=== PATIENT | female | born 1950 | race Caucasian/White ===

== ENCOUNTER 2016-07-17 15:30 | Inpatient (IN) ==
[2016-07-17] MEDS ORDERED: ZOFRAN IV ONE (16:08)
[2016-07-17] MEDS ORDERED: NS 1,000 ML IV ONE (16:10)
--- NOTE | 2016-07-17 16:11 | PROVIDER DOCUMENTATION ---
HPI-Abdominal Pain/GI Problem - General Source: patient, family - History of Present Illness-ABD Associated Symptoms: reports: cough, nausea, vomiting # of Vomiting Episodes: 25 (approx) <Renata Holman - Last Filed: 07/17/16 17:55> <Lizabeth Godfrey - Last Filed: 07/17/16 18:44> - General Chief Complaint: Nausea/Vomiting Stated Complaint: NAUSEA AND VOMITING Time Seen by Provider: 07/17/16 16:00 Allergies/Adverse Reactions: Patient Allergies Allergy/AdvReac Type Severity Reaction Status Date / Time No Known Allergies Allergy Verified 07/17/16 15:51 Home Medications: Aspirin EC 81 mg PO DAILY 04/30/16 Diltiazem HCl [Diltiazem 24Hr ER] 120 mg PO DAILY 04/30/16 Divalproex [Depakote] 500 mg PO DAILY 04/30/16 Docusate Sodium [Colace] 100 mg PO DAILY 04/30/16 Propranolol HCl [Propranolol HCl ER] 80 mg PO DAILY 04/30/16 Alendronate Sodium 70 mg PO Q7D 05/01/16 Allopurinol 100 mg PO DAILY 05/01/16 Amlodipine Besylate 10 mg PO DAILY 05/01/16 Clonidine [Catapres] 0.1 mg PO BID 05/01/16 Cyanocobalamin 1,000 microgm IM DIRECTED 05/01/16 Furosemide 40 mg PO DAILY 05/01/16 Hydrocodone Bit/Acetaminophen [Hydrocodon-Acetaminophn 10-325] 1 each PO BID PRN PRN 05/01/16 Levothyroxine [Synthroid] 125 microgm PO DAILY 05/01/16 Lisinopril 40 mg PO DAILY 05/01/16 Meloxicam 15 mg PO DAILY 05/01/16 Potassium Chloride E.r. [Klor-Con] 20 meq PO DAILY 05/01/16 - History of Present Illness-ABD Nature of Presenting Problems: Pt presents to the ER with complaints of nausea and vomiting x 24 hours. Pt was in recently hospitalized for kidney infection. Family has since pulled pt out of custodial. She denies abdominal pain. FSBS was 71 at home. (Renata Holman) Review of Systems - Adult - REVIEW OF SYSTEMS - ADULT Constitutional: denies: chills, fever Eyes: reports: no symptoms reported Ears, Nose, Mouth & Throat: reports: no symptoms reported Cardiovascular: reports: no symptoms reported Respiratory: reports: no symptoms reported Gastrointestinal: reports: nausea, vomiting. denies: abdominal pain Genitourinary: reports: no symptoms reported Musculoskeletal: reports: no symptoms reported Integumentary: reports: no symptoms reported Neurological: reports: no symptoms reported Psychiatric: reports: no symptoms reported Endocrine: reports: no symptoms reported Hematologic/Lymphatic: reports: no symptoms reported Allergic/Immunologic: reports: no symptoms reported All Other Systems: Reviewed and Negative <Renata Holman Filed: 07/17/16 17:55> Past History - Adult - PAST MEDICAL HISTORY-ADULT Review of Records: reports: Nursing Assessment Review, Medications Reviewed Cardiovascular: reports: cardiac disease Respiratory: denies: pneumonia Gastrointestinal: reports: GERD Musculoskeletal: reports: chronic pain Neurological: reports: Parkinson's - IMMUNIZATION STATUS Childhood Immunizations: See Nurse Assessment Flu Vaccine: See Nurse Assessment <Manda,Renata Filed: 07/17/16 17:55> Physical Exam-General - PHYSICAL EXAM-ADULT Initial Vital Signs Reviewed: Yes - CONSTITUTIONAL General Appearance: alert, no apparent distress - EYES Eyes: PERRL/EOMI, pink conjunctivae - HEAD, EARS, NOSE, MOUTH & THROAT HENMT: normocephalic/atraumatic, normal ENT inspection - NECK Neck: supple, normal inspection - RESPIRATORY Respiratory: no respiratory distress, no accessory muscle use - CARDIOVASCULAR Cardiovascular: normal peripheral pulses, regular rate, rhythm - MUSCULOSKELETAL Back Exam: no CVA tenderness, no vertebral tenderness Extremity: normal gait, normal inspection - SKIN Integumentary: normal color, warm/dry - NEUROLOGIC Neurologic: grossly normal, no motor/sensory deficits - PSYCHIATRIC Psych/Mental Status: normal mood/affect, normal thought content, normal thought process, oriented x 3 <MandaJaime cruzsey Filed: 07/17/16 17:55> Progress - XRAY 1 XRAY Study: Chest Impression: Abnormal (ileus, per radiologist) - CHANGE OF SHIFT REPORT (ED Provider) Report Given and Care Transferred to:: Dr. Tipton Time of Transfer: 17:55 Items Pending: Labs <Jaime Holmansey Filed: 07/17/16 17:55> - CONSULTS/PCP/HOSPITALIST Notification #1 *Consult/PCP/Hospitalist*: Dr. Rothman Time Discussed: 18:37 Consult Disposition: Admit <Lizabeth Godfrey - Last Filed: 07/17/16 18:44> - PLAN OF CARE/RESULTS Progress/Plan/Lab Results: plan of care: imaging, labs, fluids, medications Orders Category Date Time Status Castro Cath Insertion ORDERED Care 07/17/16 17:18 Active ABDOMEN FLAT/UPRIGHT [RAD] Stat Exams 07/17/16 16:08 Completed CBC WITH ELECTRONIC DIFF [HEME] Stat Lab 07/17/16 17:25 Completed COMPREHENSIVE METABOLIC PANEL [CHEM] Stat Lab 07/17/16 17:25 Completed LIPASE [CHEM] Stat Lab 07/17/16 17:[address] W/POSS RFLX CULT [URINALYSIS] Stat Lab 07/17/16 17:11 Completed URINE CULTURE [RM] Routine Lab 07/17/16 17:49 Ordered 0.9% Sodium Chloride Inj [Ns] 1,000 ml Med 07/17/16 16:10 Discontinued IV 999 mls/hr Ondansetron [Zofran] Med 07/17/16 16:08 Discontinued 4 mg IV NOW ONE Laboratory Tests 07/17/16 07/17/16 07/17/16 17:11 17:25 17:25 WBC RBC Hgb Hct MCV MCH MCHC RDW Std Deviation Plt Count MPV Immature Gran % (Auto) Neut % (Auto) Lymph % (Auto) [place] % (Auto) Eos % (Auto) Baso % (Auto) Immature Gran # (Auto) Neut # Lymph # [place] # Eos # Baso # Sodium 127 L Potassium 2.8 L Chloride 91 L Carbon Dioxide 24 L Anion Gap 12 BUN 8 Creatinine 0.9 Estimated GFR/1.73 m2 > 60 BUN/Creatinine Ratio 9 Glucose 87 Calculated Osmolality 253 Calcium 8.5 L Total Bilirubin 0.20 AST 17 ALT 7 L Alkaline Phosphatase 112 H Total Protein 5.0 L Albumin 1.9 L Globulin 3.0 Albumin/Globulin Ratio 1.0 Lipase 6 L Urine Source CATH Urine Color YELLOW Urine Clarity VERY CLOUDY A Urine pH 6.5 Ur Specific [place] 1.010 Urine Protein NEGATIVE Urine Ketones NEGATIVE Urine Blood 1+ A Urine Nitrite NEGATIVE Urine Bilirubin NEGATIVE Urine Urobilinogen NORMAL Urine Microscopic RBC <10 Urine WBC 2+ A Urine Microscopic WBC 10-20 A Ur Epithelial Cells >10 A Urine Crystals NONE SEEN Urine Bacteria 1+ Urine Casts NONE SEEN Urine Yeast PRESENT Urine Glucose NEGATIVE 07/17/16 17:25 WBC 9.05 RBC 3.08 L Hgb 9.4 L Hct 27.3 L MCV 88.6 MCH 30.5 MCHC 34.4 RDW Std Deviation 16.0 H Plt Count 688 H MPV 9.0 Immature Gran % (Auto) 0.2 Neut % (Auto) 76.8 H Lymph % (Auto) 11.8 L [place] % (Auto) 10.6 H Eos % (Auto) 0.3 Baso % (Auto) 0.3 Immature Gran # (Auto) 0.02 Neut # 6.94 H Lymph # 1.07 L [place] # 0.96 H Eos # 0.03 Baso # 0.03 Sodium Potassium Chloride Carbon Dioxide Anion Gap BUN Creatinine Estimated GFR/1.73 m2 BUN/Creatinine Ratio Glucose Calculated Osmolality Calcium Total Bilirubin AST ALT Alkaline Phosphatase Total Protein Albumin Globulin Albumin/Globulin Ratio Lipase Urine Source Urine Color Urine Clarity Urine pH Ur Specific [place] Urine Protein Urine Ketones Urine Blood Urine Nitrite Urine Bilirubin Urine Urobilinogen Urine Microscopic RBC Urine WBC Urine Microscopic WBC Ur Epithelial Cells Urine Crystals Urine Bacteria Urine Casts Urine Yeast Urine Glucose Vital Signs - 24 hr 07/17/16 07/17/16 07/17/16 15:48 16:00 16:42 Pulse Rate 125 H Respiratory 21 14 Rate Blood Pressure 117/75 106/70 129/71 O2 Sat by Pulse Oximetry 07/17/16 07/17/16 07/17/16 16:45 17:01 17:15 Pulse Rate Respiratory 15 Rate Blood Pressure 98/86 88/73 106/76 O2 Sat by Pulse Oximetry 07/17/16 07/17/16 07/17/16 17:39 17:51 18:00 Pulse Rate 116 H 112 H Respiratory 11 L 13 Rate Blood Pressure 118/62 110/76 101/71 O2 Sat by Pulse 97 Oximetry 07/17/16 18:10 Pulse Rate 108 H Respiratory 13 Rate Blood Pressure 105/82 O2 Sat by Pulse Oximetry Pt/Family given results. Pt will be admitted to the Hospitalist [facility]. PT/ Family in agreement with plan of care. (Lizabeth Godfrey) Departure <Renata Holman - Last Filed: 07/17/16 17:55> - Departure Time of Disposition Order: 18:42 Certified Medical Emergency: Emergent <Lizabeth Godfrey - Last Filed: 07/17/16 18:44> - Departure DIAGNOSIS: Hypokalemia, Hyponatremia, Decubitus ulcer of back, stage 1 Disposition: ADMITTED INPATIENT 09 Condition: Stable Attestation - Scribe Verification/Attestation Scribe:: Renata Holman Acting as Scribe for:: Prince Cuevas Scribe documention review:: This chart was documented by a scribe and accurately reflects the service the provider performed and the decisions made by the provider. <Renata Holman - Last Filed: 07/17/16 17:55> - Scribe Verification/Attestation #2 Shift Change Time: 18:00 Scribe Name: Lizabeth Godfrey Acting as Scribe for:: Jean Marie Tipton <Lizabeth Godfrey - Last Filed: 07/17/16 18:44> Physician Attestation - Physician Attestation I, the provider, attest to the following statement:: Jean Marie Tipton Physician documentation Attestation:: This documentation recorded by the scribe accurately reflects the service I personally performed and the decisions made by me. <Lizabeth Godfrey - Last Filed: 07/17/16 18:44>
[2016-07-17 17:19] LABS: URINE SOURCE CATH
--- NOTE | 2016-07-17 17:20 | Diag Imaging Result Document ---
PROCEDURE NAME: ABDOMEN FLAT/UPRIGHT - 07/17/2016 FLAT AND UPRIGHT ABDOMEN: FINDINGS: There is some gas throughout the small bowel and colon including the rectum. The stomach is not distended. There is no evidence of organomegaly or mass. IMPRESSION: Ileus.
[2016-07-17 17:26] LABS: BILIRUBIN URINE NEGATIVE (NEGATIVE); BLOOD URINE 1+ (NEGATIVE); CLARITY VERY CLOUDY (CLEAR); COLOR YELLOW; GLUCOSE URINE NEGATIVE (NEGATIVE); LEUKOCYTES URINE 2+ (NEGATIVE); NITRITE URINE NEGATIVE (NEGATIVE); PH URINE 6.5; PROTEIN URINE NEGATIVE (NEGATIVE); UROBILINOGEN URINE NORMAL
[2016-07-17 17:40] LABS: MANUAL DIFF NEEDED? NO
[2016-07-17 17:42] LABS: BASO% 0.3 % (0.0-0.8); EOS# 0.03 X1000 (0.0-0.7); EOS% 0.3 % (0.0-10.0); HEMATOCRIT 27.3 % (37.0-47.0); HEMOGLOBIN 9.4 g/dL (12.0-16.0); IMM GRAN# 0.02 X1000 (0.0-0.04); IMM GRAN% 0.2 % (0.0-0.5); LYMPH# 1.07 X1000 (1.2-3.4); LYMPH% 11.8 % (20.5-51.1); MCH 30.5 PG (27-31); MCHC 34.4 g/dL (33-37); MCV 88.6 FL (81-99); MONO# 0.96 X1000 (0.11-0.59); MONO% 10.6 % (1.7-9.3); NEUT% 76.8 % (42.2-75.2); PLT 688 X1000 (130-400); RBC 3.08 XMIL (4.2-5.4)
[2016-07-17 17:48] LABS: URINE CAST NONE SEEN /LPF; URINE CRYSTAL NONE SEEN /HPF; URINE EPITHELIAL CELLS >10 /HPF (<10); URINE RBC <10 /HPF (<10)
[2016-07-17 17:49] LABS: URINE CULTURE PL NEEDED? YES
[2016-07-17 18:20] LABS: AGAP 12; ALBUMIN 1.9 g/dL (3.5-5.0); ALKALINE PHOSPHATASE 112 U/L (32-104); BUN 8 mg/dL (8-22); CALCIUM 8.5 mg/dL (8.8-10.2); CHLORIDE 91 mmol/L (98-107); COSMO 253; GOT 17 U/L (10-30); GPT 7 U/L (10-36); POTASSIUM 2.8 mmol/L (3.5-5.1); SODIUM 127 mmol/L (136-145); TCO2 24 mmol/L (25-35)
[2016-07-17] MEDS: NS 1,000 ML IV SCH (21:10)
[2016-07-17] MEDS: ZOFRAN IV PRN (21:11)
[2016-07-17] MEDS: CATAPRES PO SCH (21:11)
[2016-07-17] MEDS: KLOR-CON PO SCH (21:11)
[2016-07-17] MEDS ORDERED: CALMOSEPTINE OINTMENT TOP PRN (22:01)
[2016-07-18] MEDS ORDERED: PHENERGAN IV ONE ×2 (00:28→05:01)
[2016-07-18] MEDS ORDERED: SODIUM CHLORIDE 0.9% INJ ONE ×2 (00:28→05:01)
[2016-07-18] MEDS ORDERED: SODIUM CHLORIDE 0.9% 10 ML ONE (04:54)
[2016-07-18] MEDS ORDERED: PHENERGAN ONE (04:54)
[2016-07-18] MEDS: NS 1,000 ML IV SCH ×5 (05:00→21:54)
[2016-07-18] MEDS: SYNTHROID PO SCH ×4 (05:03→06:41)
[2016-07-18] MEDS ORDERED: FOSAMAX PO SCH (06:00)
[2016-07-18] MEDS: KLOR-CON PO SCH ×2 (08:53→21:54)
[2016-07-18] MEDS: COLACE PO SCH (08:53)
[2016-07-18] MEDS: CATAPRES PO SCH ×2 (08:53→21:54)
[2016-07-18] MEDS: DEPAKOTE PO SCH (08:53)
[2016-07-18] MEDS: CARDIZEM CD PO SCH (08:53)
[2016-07-18] MEDS: ZYLOPRIM PO SCH (08:53)
[2016-07-18 09:50] LABS: AGAP 7; BUN 7 mg/dL (8-22); CALCIUM 8.4 mg/dL (8.8-10.2); CHLORIDE 97 mmol/L (98-107); COSMO 259; POTASSIUM 2.7 mmol/L (3.5-5.1); SODIUM 131 mmol/L (136-145); TCO2 27 mmol/L (25-35)
[2016-07-18] MEDS: TYLENOL PO PRN (12:22)
--- NOTE | 2016-07-18 15:03 | HISTORY AND PHYSICAL ---
CHIEF COMPLAINT: Nausea and vomiting. HISTORY OF PRESENT ILLNESS: This is a 66-year-old female with a history of cerebrovascular accident with left-sided weakness, Parkinson disorder, diabetes type 2 and hypothyroidism. She presented to the emergency room complaining of nausea and vomiting x24 hours. She denies any diarrhea or constipation, as well as any fever or chills. She was found to have an ileus on abdominal x-ray with some gas throughout the small bowel and colon including the rectum. She is also found be hypokalemic with a potassium of 2.8. In the emergency room she was given a liter bolus of fluids with Phenergan IV, and then admitted for further evaluation and treatment. PAST MEDICAL HISTORY: 1. Parkinson. 2. Diabetes type 2. 3. CVA with left-sided weakness. The patient is bed bound. 4. Diabetic peripheral neuropathy. 5. Gastroesophageal reflux disease. 6. Hypothyroidism. 7. Chronic pain. 8. Chronic obstructive pulmonary disease with no treatment. PAST SURGICAL HISTORY: Hiatal hernia repair, cholecystectomy and bilateral cataract surgery. SOCIAL HISTORY: She denies alcohol, tobacco, or illicit drug use. She is bed bound. She is unable to care for herself. She has be assisted with feeding. ALLERGIES: No known drug allergies. HOME MEDICATIONS: A list will be obtained. REVIEW OF SYSTEMS: A 14 point review of systems are discussed with patient with pertinent positives stated in HPI. She denies chest pain, palpitations, dizziness, syncope, black or bloody vomitus, black or bloody stools, hematuria, dysuria, frequency or urgency. PHYSICAL EXAMINATION: GENERAL: This is a 66-year-old, female, who is sitting up in the bed in no distress. VITAL SIGNS: Blood pressure is 117/75, heart rate of 102, respirations are 18, temperature is 99 degrees with an oxygen saturation of 99% to 100% on room air. HEENT: Head is normocephalic, atraumatic. Pupils equal, round, react to light. EOMs are intact. Sclerae anicteric. Mucous membranes are dry. NECK: Supple with trachea midline. CARDIOVASCULAR: Regular rate and rhythm. S1 and S2 appreciated. PULMONARY: Breath sounds are clear. No increased work of breathing noted. BACK: No CVAT. No spine tenderness. MUSCULOSKELETAL: Good range of motion to joints. SKIN: Warm and dry. No rashes or lesions noted. EXTREMITIES: No clubbing, cyanosis, or edema. Calves nontender. Pulses are palpable x4. DIAGNOSTICS: Labs: WBC is 9.05 with hemoglobin 9.4, hematocrit 27.3, and platelets of 688. Sodium is 127, potassium 2.8, BUN 8, creatinine 0.9, with a glucose of 87. Urinalysis is a cath urine with 1+ blood, 15-20 microscopic white blood cells, less than 10 microscopic red blood cells, 1+ bacteria. Lipase is 6. X-rays: Abdominal x-ray revealed an ileus. ASSESSMENT AND PLAN: 1. Nausea and vomiting. 2. Ileus. 3. Hypokalemia. 4. Hyponatremia, secondary to #1. 5. Diabetes type 2 with neuropathy. 6. Parkinson. 7. Gastroesophageal reflux disease. 8. Hypothyroidism. 9. History of cerebrovascular accident with left-sided weakness. The patient is bed bound. PLAN: The patient has been admitted to the hospital. We will continue with IV hydration. We will supplement potassium and trend labs. As she has an ileus, we will hold off on Phenergan. Will give Zofran for nausea. At present, we will identify the home medications and continue as appropriate. We will check a hemoglobin A1c, as well as a TSH. For DVT prophylaxis, we will use SCDs, and for GI prophylaxis we will use Prilosec. Further treatments pending hospital course. Dictated by JASPREET Dean for Herrera Rothman MD
[2016-07-18] MEDS: POTASSIUM CHLORIDE 20 MEQ/SWI 100 ML IV SCH ×2 (15:26→17:48)
[2016-07-19] MEDS: NS 1,000 ML IV SCH ×4 (02:51→23:42)
[2016-07-19] MEDS: SYNTHROID PO SCH ×4 (05:28→06:21)
[2016-07-19] MEDS: PRILOSEC PO SCH ×2 (05:29→06:21)
[2016-07-19 09:24] LABS: HEMOGLOBIN 8.6 g/dL (12.0-16.0); MCH 29.1 PG (27-31); MCHC 33.1 g/dL (33-37); MCV 87.8 FL (81-99); MPV 8.8 FL (7.4-10.4); RBC 2.96 XMIL (4.2-5.4)
[2016-07-19 09:33] LABS: AGAP 9; BUN 6 mg/dL (8-22); CHLORIDE 99 mmol/L (98-107); COSMO 259; SODIUM 130 mmol/L (136-145); TCO2 22 mmol/L (25-35)
[2016-07-19 09:48] LABS: HEMOGLOBIN A1C 4.3 % (4.8-6.0)
[2016-07-19] MEDS: COLACE PO SCH ×2 (10:57→12:38)
[2016-07-19] MEDS: ZYLOPRIM PO SCH ×2 (10:57→12:39)
[2016-07-19] MEDS: CATAPRES PO SCH ×4 (10:57→21:36)
[2016-07-19] MEDS: CARDIZEM CD PO SCH ×2 (10:57→12:38)
[2016-07-19] MEDS: KLOR-CON PO SCH ×3 (10:57→21:39)
[2016-07-19] MEDS: DEPAKOTE PO SCH ×2 (10:58→12:39)
[2016-07-19] MEDS: ZOFRAN IV PRN ×2 (12:22→17:37)
--- NOTE | 2016-07-19 16:00 | PROGRESS NOTE ---
DATE: 07/19/2016 SUBJECTIVE: Patient resting quietly in bed. No complaints voiced. OBJECTIVE: Vital Signs: Temperature 98, pulse 93, respirations 18, blood pressure 127/69, saturating 100% on room air. General: This is a 66-year-old, female who is lying in the bed, answers questions appropriately. HEENT: Normocephalic and atraumatic. Pupils are equal, round, reactive to light. Extraocular movements are intact. Oropharynx and nares are clear. Neck: Supple. Lungs: Were clear to auscultation bilaterally with equal lung expansion and chest wall movement. Heart: With regular rate and rhythm. No murmurs, rubs, or gallops. Abdomen: Soft, nontender, nondistended. Bowel sounds are present x4 quadrants. Extremities: No clubbing, cyanosis, or edema. Neurological: Cranial nerves 2-12 are grossly intact. LABORATORY DATA: Showed a white blood cell count of 10.60, hemoglobin 8.6, hematocrit 26.0, platelets 645. Sodium of 130, potassium 3.0, chloride 99, CO2 of 22, BUN of 6, creatinine 0.7, glucose 104, hemoglobin A1c was 4.3. ASSESSMENT AND PLAN: 1. Nausea and vomiting. Will continue clear liquids at this time. 2. Zofran 4 mg IV q.4 hours p.r.n. 3. Ileus. We will recheck a flat and upright of the abdomen in the a.m. 4. Hypokalemia. We will supplement and recheck a BMP and a magnesium level in the a.m. 5. Hyponatremia. Stable currently, but still mildly low. Continue her normal saline at 125 mL an hour. 6. Dysphagia. She was evaluated by speech therapy today, who felt that she demonstrated possible esophageal dysphagia as she had immediate vomiting with applesauce. Recommended a liquid diet at this time and a gastroenterology consult for a possible esophageal stricture. So we will transfer the patient over to [facility] for GI consultation once a bed availability is there, and we will continue to follow. Dictated by JASPREET Jennings for Peewee Montana MD
[2016-07-20 06:09] LABS: MANUAL DIFF NEEDED? NO
[2016-07-20] MEDS: PRILOSEC PO SCH (06:20)
[2016-07-20] MEDS: SYNTHROID PO SCH ×2 (06:20)
[2016-07-20 06:22] LABS: BASO% 0.2 % (0.0-0.8); EOS# 0.06 X1000 (0.0-0.7); EOS% 0.6 % (0.0-10.0); HEMATOCRIT 26.3 % (37.0-47.0); HEMOGLOBIN 8.7 g/dL (12.0-16.0); IMM GRAN# 0.06 X1000 (0.0-0.04); IMM GRAN% 0.6 % (0.0-0.5); LYMPH# 1.19 X1000 (1.2-3.4); LYMPH% 11.4 % (20.5-51.1); MCH 29.3 PG (27-31); MCHC 33.1 g/dL (33-37); MCV 88.6 FL (81-99); MONO# 1.32 X1000 (0.11-0.59); MONO% 12.7 % (1.7-9.3); MPV 9.1 FL (7.4-10.4); NEUT% 74.5 % (42.2-75.2); PLT 606 X1000 (130-400); RBC 2.97 XMIL (4.2-5.4)
[2016-07-20 06:40] LABS: AGAP 8; BUN 5 mg/dL (8-22); CALCIUM 7.9 mg/dL (8.8-10.2); CHLORIDE 104 mmol/L (98-107); COSMO 261; MAGNESIUM 1.2 mg/dL (1.5-2.7); POTASSIUM 2.8 mmol/L (3.5-5.1); SODIUM 132 mmol/L (136-145); TCO2 21 mmol/L (25-35)
[2016-07-20] MEDS: D50W SYRINGE IV PRN (06:40)
[2016-07-20] MEDS ORDERED: SODIUM CHLORIDE 0.9% INJ PRN (07:47)
[2016-07-20] MEDS ORDERED: MAGNESIUM SULFATE 2 GM/S.W.I. 50 ML IV ONE ×2 (08:00→18:00)
[2016-07-20] MEDS ORDERED: CALCIUM GLUCONATE 2 GM in NS 100 ML IV ONE (08:00)
--- NOTE | 2016-07-20 08:09 | PROGRESS NOTE ---
DATE: 07/20/2016 SUBJECTIVE: Patient without complaints. Did have an eventful night. She was agitated most of the night. She is having difficulty swallowing. OBJECTIVE: Vital signs: Temperature 99, pulse 106, respiratory rate 18, BP 115/55. General: Patient is a well-developed female who is in no respiratory distress. She is awake, alert, disoriented at times. Neck: Supple. CV: Regular rate. Chest: Clear and unlabored. Abdomen: Soft. LABS: Hemoglobin and hematocrit are 8 and 26. Sodium 132, potassium 2.8. ASSESSMENT: 1. Hypokalemia. 2. Hypomagnesemia. Magnesium is 1.2. 3. Hypocalcemia. Calcium is 7.9. 4. Hyponatremia at 132. 5. Anemia. Hemoglobin and hematocrit have dropped slightly although likely delusional effect. 6. Dysphagia. Patient had an upper GI with speech yesterday, who recommended GI consultation. We will attempt to transfer her to [facility] to allow this to happen. 7. Nausea and vomiting. Continues to be problematic. This patient is having difficulty taking oral medications. PLAN: We will replace her potassium, magnesium, and calcium all IV as she is having difficulty swallowing. We will change her Synthroid to IV. We will attempt to get her to [facility] for GI consultation. Otherwise will hold her symptomatic oral medications.
--- NOTE | 2016-07-20 08:33 | Diag Imaging Result Document ---
PROCEDURE NAME: ABDOMEN FLAT/UPRIGHT - 07/20/2016 ABDOMEN, 2 VIEWS: COMPARISON: 07/17/2016. FINDINGS: There is stable, mild, diffuse, gas distention of the small bowel and colon. No transition point. No free air. IMPRESSION: Apparent diffuse ileus. No change from prior.
[2016-07-20] MEDS: CATAPRES PO SCH (13:12)
[2016-07-20] MEDS: COLACE PO SCH (13:12)
[2016-07-20] MEDS: KLOR-CON PO SCH (13:13)
[2016-07-20] MEDS: PROTONIX IV SCH (13:14)
[2016-07-20] MEDS: DEPAKOTE PO SCH (13:14)
[2016-07-20] MEDS: CARDIZEM CD PO SCH (13:14)
[2016-07-20] MEDS: SODIUM CHLORIDE 0.9% INJ SCH (13:14)
[2016-07-20] MEDS: POTASSIUM CHLORIDE 20 MEQ/SWI 100 ML IV SCH (13:14)
[2016-07-20] MEDS: NS 1,000 ML IV SCH ×2 (13:36→18:04)
[2016-07-21] MEDS: CATAPRES PO SCH ×3 (00:48→22:51)
[2016-07-21] MEDS: KLOR-CON PO SCH ×3 (00:53→22:53)
[2016-07-21] MEDS: POTASSIUM CHLORIDE 20 MEQ/SWI 100 ML IV SCH (00:56)
[2016-07-21] MEDS: NS 1,000 ML IV SCH (00:57)
[2016-07-21] MEDS ORDERED: BLISTEX MEDICATED BERRY LIP BALM TOP PRN (01:02)
[2016-07-21] MEDS: ZOFRAN IV PRN (04:44)
[2016-07-21] MEDS ORDERED: SYNTHROID IV SCH (07:00)
[2016-07-21] MEDS ORDERED: SSD CREAM TOP SCH (10:45)
[2016-07-21] MEDS: PROTONIX IV SCH (11:31)
[2016-07-21] MEDS: COLACE PO SCH (12:48)
[2016-07-21] MEDS: CARDIZEM CD PO SCH ×2 (12:48→16:11)
[2016-07-21] MEDS: DEPAKOTE PO SCH ×2 (12:49→16:12)
[2016-07-21] MEDS ORDERED: MAGNESIUM SULFATE 2 GM/S.W.I. 50 ML IV ONE (15:37)
[2016-07-21] MEDS: NS + KCL 20 MEQ 1,000 ML IV SCH (16:08)
[2016-07-21 16:48] LABS: AGAP 9; BUN 5 mg/dL (8-22); CALCIUM 8.8 mg/dL (8.8-10.2); CHLORIDE 99 mmol/L (98-107); COSMO 253; MAGNESIUM 1.5 mg/dL (1.5-2.7); POTASSIUM 3.9 mmol/L (3.5-5.1); SODIUM 128 mmol/L (136-145); TCO2 20 mmol/L (25-35)
--- NOTE | 2016-07-21 17:04 | PROGRESS NOTE ---
DATE: 07/21/2016 Ms. Perez does feel better. She is breathing, she states, a little better. She denies any nausea, just says she has thrown up quite a bit. To review, she is a 66-year-old with a history of cerebrovascular accident, left-sided weakness, Parkinson disease, diabetes mellitus type 2, and hypothyroidism. Presented to emergency room with complaint of nausea and vomiting for 24 hours. Denied any diarrhea, constipation, as well as fever and chills. She was found to have an ileus on the abdominal x-ray with some gas throughout small bowel and colon including the rectum. Also found to have hypokalemia with potassium 2.8, was given a liter bolus and given some potassium. PAST MEDICAL HISTORY: 1. Parkinson's. 2. Diabetes mellitus type 2. 3. CVA with left-sided weakness. The patient bed bound. 4. Diabetic peripheral neuropathy. 5. Gastroesophageal reflux disease. 6. Hypothyroidism. 7. Chronic pain syndrome. 8. COPD, with no treatment. PAST SURGICAL HISTORY: She has had a hiatal hernia repair, cholecystectomy, bilateral cataract surgery. So she was admitted with nausea and vomiting, ileus. Gave her IV hydration, some potassiums, and antiemetics. And she does feel better. PHYSICAL EXAMINATION: Vital Signs: Temperature 98.2 degrees, pulse 100, respirations 16, blood pressure 112/70. HEENT: The pupils are equal and round. Lungs: Clear in all lung oscar. Cardiovascular: Regular rate without murmur or S3. Abdomen: Soft. Skin: Warm and dry. A lot of irritation around lower in the skin of the perineal folds. : She had good urine output yesterday, 900 mL. LAB: Reviewed from yesterday. White count 10,420, hematocrit 26, platelet count 606,000. Chemistries: Blood sugar 75, 128, 113, 92. ASSESSMENT AND PLAN: Dr. Montana had seen her yesterday. 1. Hypokalemia. 2. Hypomagnesemia. Magnesium was 1.2. 3. Hypocalcemia. Calcium was 7.9. 4. Hyponatremia. Sodium was 132. All these supplemented. 5. Anemia. Hemoglobin and hematocrit have dropped a little from dilutional effect but seem to be stable. 6. Dysphagia. Had upper GI and speech evaluation. Attempt to transfer to [facility] for this. So they really came in for speech evaluation and upper GI if possible. 7. Nausea and vomiting continues to be an issue. She still apparently is vomiting, but she denies nausea. Review of her electrolytes from yesterday and they were supplemented. We are going to go ahead and give her some more potassium, and recheck her electrolytes now and again in the morning. Dr. Parra is to see.
[2016-07-21] MEDS: MAG-OX PO SCH (22:52)
[2016-07-22] MEDS: SSD CREAM TOP SCH ×3 (00:11→22:06)
[2016-07-22] MEDS: NS + KCL 20 MEQ 1,000 ML IV SCH ×4 (00:12→16:23)
[2016-07-22] MEDS: ZOFRAN IV PRN ×2 (00:51→10:15)
[2016-07-22] MEDS: SYNTHROID IV SCH (06:28)
[2016-07-22 06:37] LABS: AGAP 15; ALKALINE PHOSPHATASE 117 U/L (32-104); BUN 4 mg/dL (8-22); CALCIUM 8.5 mg/dL (8.8-10.2); CHLORIDE 101 mmol/L (98-107); COSMO 262; GOT 14 U/L (10-30); GPT 8 U/L (10-36); POTASSIUM 4.4 mmol/L (3.5-5.1); SODIUM 133 mmol/L (136-145); TCO2 17 mmol/L (25-35); TOTAL BILIRUBIN 0.22 mg/dL (0.20-1.00); TOTAL PROTEIN 4.6 g/dL (6.3-8.3)
[2016-07-22] MEDS: SODIUM CHLORIDE 0.9% INJ SCH (08:35)
[2016-07-22] MEDS: PROTONIX IV SCH ×2 (08:35→08:44)
[2016-07-22] MEDS: COLACE PO SCH ×2 (08:36→10:16)
[2016-07-22] MEDS: CARDIZEM CD PO SCH ×2 (08:36→10:17)
[2016-07-22] MEDS: CATAPRES PO SCH ×3 (08:36→20:49)
[2016-07-22] MEDS: DEPAKOTE PO SCH ×2 (08:36→10:16)
[2016-07-22] MEDS: MAG-OX PO SCH ×3 (08:36→20:49)
[2016-07-22] MEDS: TYLENOL PO PRN (10:09)
[2016-07-22] MEDS: KLOR-CON PO SCH ×2 (10:16→20:49)
[2016-07-22] MEDS ORDERED: DIFLUCAN 100 MG/NS 50 ML IV SCH (14:30)
--- NOTE | 2016-07-22 14:39 | PROGRESS NOTE ---
DATE: 07/22/2016 SUBJECTIVE: Ms. Perez is more awake, feeling better. We are going to try and give her some food. She is complaining about having her medications. She remains afebrile. OBJECTIVE: Vital signs: Temperature 98.5 degrees, pulse 120, respirations 18, blood pressure 148/98. Lungs: Clear in all lung oscar. Cardiovascular: Regular rhythm and rate, without murmur or S3. Abdomen: Soft. Urine output 500 mL. LABORATORY: Sodium 133, potassium 4.4, chloride 101, bicarb 17. BUN 4, creatinine 0.6. Blood sugar 71, 74, and 84. Calcium 8.5. ASSESSMENT AND PLAN: 1. Hypokalemia. 2. Hyponatremia. 3. Hypomagnesemia, better. 4. Hypocalcemia. Calcium still a little low at 8.5. Magnesium and potassium are back to normal limits. 5. Anemia. Hemoglobin and hematocrit dropped a little bit from dilutional effect. 6. Dysphagia. GI and speech evaluation was here for speech evaluation and did help with possible upper GI if necessary. Nausea and vomiting have improved. We will see if we can advanced her diet. She is on full liquids now. We will see how we do on soft diet.
[2016-07-22] MEDS: ZYVOX 600 MG/D5W 300 ML IV SCH (16:23)
[2016-07-23] MEDS: TYLENOL PO PRN (00:57)
[2016-07-23] MEDS: ZYVOX 600 MG/D5W 300 ML IV SCH (03:05)
[2016-07-23] MEDS: NS + KCL 20 MEQ 1,000 ML IV SCH ×3 (05:57→23:08)
[2016-07-23] MEDS: SODIUM CHLORIDE 0.9% INJ PRN (06:51)
[2016-07-23] MEDS: SYNTHROID IV SCH (06:51)
[2016-07-23] MEDS: MAG-OX PO SCH ×2 (10:05→20:20)
[2016-07-23] MEDS: KLOR-CON PO SCH ×2 (10:05→20:19)
[2016-07-23] MEDS: COLACE PO SCH (10:05)
[2016-07-23] MEDS: DEPAKOTE PO SCH (10:06)
[2016-07-23] MEDS: CARDIZEM CD PO SCH (10:06)
[2016-07-23] MEDS: SSD CREAM TOP SCH ×2 (10:06→20:20)
[2016-07-23] MEDS: CATAPRES PO SCH ×2 (10:07→20:19)
[2016-07-23] MEDS: PROTONIX IV SCH (10:07)
--- NOTE | 2016-07-23 14:50 | PROGRESS NOTE ---
DATE: 07/23/2016 SUBJECTIVE: Ms. Perez is a little more awake feeling better. Breathing is better. Still not swallowing very well. She is drinking some liquids. OBJECTIVE: Vital signs: She has remained afebrile, T-max this morning was 100.4, pulse 110, respirations 18, blood pressure 124/65. Lungs: Are clear in all lung oscar. Cardiovascular: Regular rhythm and rate without murmur or S3. Abdomen: Soft. Skin: Is warm and dry. Good urine output over 2 L. LAB: Reviewed. No significant change. Blood sugars 71, 74, 84, 77, serum creatinine 0.6. ASSESSMENT AND PLAN: 1. Hypokalemia. 2. Hyponatremia. 3. Hypomagnesemia We will look to see what is the trouble with her swallow. She has history of anemia, follow her hematocrit and will get a swallow study. Presently her orders I do not know that I see any change at this point. She is on fluconazole 100 mg IV daily, linezolid which I started yesterday, she had yeast and enterococcus faecalis growing out and it was noted enterococcus was resistant to vancomycin was 10,000, 20,000 units.
--- NOTE | 2016-07-23 18:47 | CONSULTATION ---
DATE OF CONSULTATION: 07/23/2016 CONCLUSION: Dr. Nunes asked me to see the patient regarding her possible urinary tract infection. I think the patient has asymptomatic bacteriuria and funguria. RECOMMENDATIONS: Based on the above finding of asymptomatic bacteriuria and funguria I think the patient should not receive any antimicrobial agent against the yeast and enterococcus found in the culture. DISCUSSION: The patient was unable provide a history. The history was taken from a review of the computer. The patient was brought to the emergency room complaining of nausea and vomiting for 24 hours. Her urine is growing 100,000 colonies of yeast and 10,000-20,000 colony- forming units of Enterococcus faecium. DIAGNOSTICS: Her CBC shows a white count of 10,420, hemoglobin 8.7, and platelet count 606,000. Creatinine is 0.6. The patient's CBC shows a white count of 10,420, hemoglobin 8.7, and platelet count 606,000 creatinine 0.6, GFR is greater than 60. Liver function studies are normal. Patient's x-ray of the abdomen showed an ileus. PAST MEDICAL HISTORY: Positive for parkinsonism, diabetes, stroke, diabetic peripheral neuropathy, gastroesophageal reflux disease, hypothyroidism, chronic pain, chronic obstructive pulmonary disease. PAST SURGICAL HISTORY: Positive for hiatal hernia, cholecystectomy and bilateral cataract surgery. SOCIAL HISTORY: The patient lives in a long term. She denies alcohol, tobacco or illicit drugs. She is bedbound. She is unable to care for herself and she needs to be assisted with eating. ALLERGIES: She has no known drug allergies. HOME MEDICATIONS: At home, the patient takes Inderal, potassium, meloxicam, lisinopril, Synthroid, hydrocodone, gabapentin, furosemide, docusate, Depakote, diltiazem, cyanocobalamin, Catapres, aspirin, amlodipine, alprazolam, allopurinol and alendronate. PHYSICAL EXAMINATION: Vital Signs: Temperature is 100.4 degrees, pulse 110, respirations 18, blood pressure 124/65. General: This is a somewhat ill-appearing, elderly female. She is in no acute distress. Head, eyes, ears, nose, and throat: She can hear my spoken words. She can see near objects. She had poor intraoral hygiene. Neck: No meningismus. Thorax: No increased AP diameter. Lungs: Clear to auscultation. Cardiovascular: Heart rate was regular. Abdomen: Soft and nontender. Neurologic: Patient is awake. She could move her extremities, but she is very weak. There is no tremor. Integument: I did not see any rashes on the patient. Thank you for the consult. I am available to see the patient on a p.r.n. basis. MTDD
[2016-07-24] MEDS: SODIUM CHLORIDE 0.9% INJ PRN (06:09)
[2016-07-24] MEDS: SYNTHROID IV SCH (06:09)
[2016-07-24] MEDS: NS + KCL 20 MEQ 1,000 ML IV SCH ×2 (08:11→16:16)
--- NOTE | 2016-07-24 10:30 | PROGRESS NOTE ---
DATE: 07/24/2016 SUBJECTIVE: Ms. Perez definitely feels better. Still having trouble with keeping food down. She says she is on full liquids. She can swallow it, but does not want to stay down was her report today. She does feel better. Breathing is better. She is a little stronger. OBJECTIVE: Vital Signs: Temperature 98.2, pulse 116, respirations 22, blood pressure 147/98. Lungs: Are clear in all lung oscar. Cardiovascular: Regular rhythm and rate without murmur or S3. Abdomen: Soft. Skin: Warm and dry. : Good urine output. LAB: Reviewed from the 5th note hemoglobin at 8 and hematocrit 26. Blood sugars have been 85, 66 and 76. I do not see any sign of diabetes. Dr. Oro was consulted. ASSESSMENT AND PLAN: 1. Her urine cultures grew out a little bacteremia, which was vancomycin resistant enterococcus and funguria. [facility] she is asymptomatic. She has no known drug allergies. Asymptomatic bacteria and funguria. I think the patient should not receive any antimicrobial agents and Dr. Oro agreed with that. We did put her in some isolation. The patient was brought to the emergency room with nausea and vomiting for 24 hours. The urine grew 100,000 colonies of yeast and 10-20,000 colonies of enterococcus faecium. Appreciate Dr. Oro help and stop the antibiotics. 2. Some trouble with swallowing, seems to be improving. I think we probably need to pursue some swallow studies and hoping this will improve as she gets a little stronger. 3. Blood pressure looks good. 4. She appeared a little dehydrated, so we were to continue present fluids.
[2016-07-24] MEDS: D50W SYRINGE IV PRN (11:15)
[2016-07-24] MEDS: CATAPRES PO SCH ×2 (11:19→20:55)
[2016-07-24] MEDS: MAG-OX PO SCH ×2 (11:19→20:55)
[2016-07-24] MEDS: DEPAKOTE PO SCH (11:19)
[2016-07-24] MEDS: KLOR-CON PO SCH ×2 (11:19→20:55)
[2016-07-24] MEDS: CARDIZEM CD PO SCH (11:19)
[2016-07-24] MEDS: SSD CREAM TOP SCH ×2 (11:20→20:55)
[2016-07-24] MEDS: COLACE PO SCH (11:20)
[2016-07-24] MEDS: CENTRUM SILVER PO SCH (11:20)
[2016-07-24] MEDS: ICAR-C PO SCH ×2 (11:20→20:55)
[2016-07-24] MEDS: PROTONIX IV SCH (11:20)
--- NOTE | 2016-07-24 15:02 | PROGRESS NOTE ---
DATE: 07/24/2016 SUBJECTIVE: The patient is currently resting in bed. She complains of trouble swallowing. She is a long-term resident. The nursing team and the primary team is trying to get consent for possible EGD for workup of dysphagia. OBJECTIVE: Vital signs: Temperature 98.2, pulse rate 116, respiratory rate 18, blood pressure 147/98, saturating 98% on room air. General Appearance: Moderately well nourished, lying in bed, in no distress. HEENT: Pale conjunctivae. No icterus. Neck: Supple. Abdomen: Soft, nontender, nondistended. Bowel sounds are hypoactive. No rebound or guarding. Extremities: SCD intact noted. Neurologic: She is alert and awake. Answers all questions. LABS: Hemoglobin and hematocrit is 8 and 26, blood glucose of 176. Urine culture showing enterococcus faecalis group D and yeast. Dr. Oro on board. IMPRESSION AND PLAN: 1. Dysphagia. Will try to obtain the consent from the patient's family to perform EGD tomorrow and in that regard the patient will remain NPO. 2. We will keep her on Protonix once daily. 3. Will keep her on aspiration precaution. 4. Bactrim urinary culture showing a enterococcus faecalis group D and yeast. Currently being monitored by Dr. Oro and primary team. 5. Anemia. We will start her on iron, C and perform EGD as above. 6. Constipation. Bowel regimen with Suzanne-Colace. 7. Above plan discussed with patient's nurse, Dr. Ron Nunes and Dr. Riccardo Oro.
--- NOTE | 2016-07-24 18:34 | PROGRESS NOTE ---
DATE: 07/24/2016 SUBJECTIVE: Ms. Perez fortunately reports she feels better. Appears to be breathing comfortably. OBJECTIVE: Vital Signs: Temperature 98.2 degrees, pulse 116, respirations 22, blood pressure 147/98. HEENT: Pupils are equal and round. CVP less than 6 cm. Lungs: Clear in all lung oscar. Cardiovascular Examination: Regular rhythm and rate without murmur or S3. URINE: Good urine output. LABORATORIES: Reviewed from the 5th: Blood sugars are 85/66/76/60. ASSESSMENT AND PLAN: 1. Dr. Parra has evaluated for her swallow dysphagia. Tried to obtain consent from the family to do an EGD in the morning. Will continue remaining NPO. 2. Acute Protonix once a day. 3. Keep on aspiration precautions. 4. Urinary culture shows Enterococcus faecalis, however, she is not symptomatic and same with the fungemia, so I do not believe this should receive any treatment with antibiotics. 5. Anemia. We will start her on iron with vitamin C and perform EGD. 6. Constipation. 7. Nutrition. We will hold NPO until the study is done. 8. Review orders. I do not see any changes at this time.
[2016-07-25] MEDS: NS + KCL 20 MEQ 1,000 ML IV SCH ×3 (01:34→09:38)
[2016-07-25 07:06] LABS: BASO% 0.7 % (0.0-0.8); EOS# 0.32 X1000 (0.0-0.7); EOS% 3.5 % (0.0-10.0); HEMATOCRIT 26.8 % (37.0-47.0); HEMOGLOBIN 9.2 g/dL (12.0-16.0); IMM GRAN# 0.53 X1000 (0.0-0.04); IMM GRAN% 5.9 % (0.0-0.5); LYMPH# 2.28 X1000 (1.2-3.4); LYMPH% 25.2 % (20.5-51.1); MANUAL DIFF NEEDED? YES; MCH 29.9 PG (27-31); MCHC 34.3 g/dL (33-37); MONO# 0.96 X1000 (0.11-0.59); MONO% 10.6 % (1.7-9.3); MPV 9.4 FL (7.4-10.4); NEUT% 54.1 % (42.2-75.2); PLT 435 X1000 (130-400); RBC 3.08 XMIL (4.2-5.4)
[2016-07-25 07:12] LABS: AGAP 9; ALBUMIN 1.8 g/dL (3.5-5.0); ALKALINE PHOSPHATASE 106 U/L (32-104); BUN 2 mg/dL (8-22); CALCIUM 7.7 mg/dL (8.8-10.2); CHLORIDE 106 mmol/L (98-107); COSMO 259; GOT 30 U/L (10-30); GPT 11 U/L (10-36); MAGNESIUM 1.5 mg/dL (1.5-2.7); POTASSIUM 5.1 mmol/L (3.5-5.1); SODIUM 132 mmol/L (136-145); TCO2 17 mmol/L (25-35); TOTAL BILIRUBIN 0.22 mg/dL (0.20-1.00); TOTAL PROTEIN 4.7 g/dL (6.3-8.3)
[2016-07-25 07:35] LABS: LYMPHS 26 % (21-51); MONO 6 % (1-9)
[2016-07-25] MEDS: CARDIZEM CD PO SCH (09:38)
[2016-07-25] MEDS: SYNTHROID IV SCH (09:38)
[2016-07-25] MEDS: PROTONIX IV SCH (09:38)
[2016-07-25] MEDS: CATAPRES PO SCH ×3 (09:38→21:35)
[2016-07-25] MEDS: COLACE PO SCH (09:39)
[2016-07-25] MEDS: DEPAKOTE PO SCH (09:39)
[2016-07-25] MEDS: KLOR-CON PO SCH (09:39)
[2016-07-25] MEDS: ICAR-C PO SCH ×3 (09:39→21:35)
[2016-07-25] MEDS: SSD CREAM TOP SCH ×2 (09:39→21:34)
[2016-07-25] MEDS: MAG-OX PO SCH ×3 (09:39→21:37)
[2016-07-25] MEDS: CENTRUM SILVER PO SCH (09:39)
[2016-07-25] MEDS ORDERED: MAGNESIUM SULFATE 2 GM/S.W.I. 50 ML IV ONE (10:20)
[2016-07-25] MEDS: D50W SYRINGE IV PRN (11:16)
[2016-07-25] MEDS ORDERED: MYLICON DROPS (DOSE) MISC ONE (12:43)
[2016-07-25] MEDS ORDERED: DEMEROL ONE (13:14)
[2016-07-25] MEDS ORDERED: DIPRIVAN 1% ONE (13:14)
[2016-07-25] MEDS ORDERED: NS 1,000 ML ONE (14:14)
[2016-07-25] MEDS ORDERED: ANESTHESIA PB SET 88 IN 5742 ONE (14:14)
--- NOTE | 2016-07-25 14:58 | OPERATIVE NOTE ---
PROCEDURE DATE: 07/25/2016 PROCEDURES: 1. Esophagogastroduodenoscopy. 2. Esophageal dilation. PREOPERATIVE DIAGNOSIS: Dysphagia. POSTOPERATIVE DIAGNOSES: 1. Severe esophagitis with distal esophageal ulceration. 2. Distal esophageal stricture. 3. A 2 cm hiatal hernia. DESCRIPTION OF PROCEDURE: After informed consent and adequate intravenous sedation by anesthesia, the scope was introduced to the esophagus. Patient has moderately severe esophagitis with distal esophageal ulceration. Patient has a 2 cm hiatal hernia. Stomach and duodenum normal. The scope was withdrawn. At this point, esophageal dilation was done up to 54-Hebrew. Patient tolerated procedure well without any immediate complications.
--- NOTE | 2016-07-25 15:31 | PROGRESS NOTE ---
DATE: 07/25/2016 SUBJECTIVE: The patient states that she feels okay. She is waiting to undergo endoscopy. OBJECTIVE: Vital Signs: Temperature 98.6 degrees, blood pressure 130/66, heart rate 111, respirations 18. O2 saturations 100% on room air. General: This is a elderly female, lying comfortably in bed, in no acute distress. Head: Normocephalic atraumatic. Heart: S1, S2 normal. Tachycardic. Lungs: Clear to auscultation bilaterally. No wheezes, no rales. No rhonchi. Abdomen: Positive bowel sounds. Soft, nontender, nondistended. Extremities: No edema. No cyanosis. Neurologic: The patient is awake and alert. LABS: White blood cell count 9, hemoglobin 9.2, hematocrit 26, platelets 435,000. Sodium 132, potassium 5.1, chloride 106, CO2 17, BUN 2, creatinine 0.5. Glucose 73. Magnesium 1.5. Albumin 1.8. ASSESSMENT AND PLAN: 1. Dysphagia. The patient is scheduled to undergo endoscopy today. 2. Metabolic acidosis. We will start the patient on sodium bicarbonate tablets. 3. Hyponatremia. Stable. Will continue to monitor this closely. 4. History of cerebrovascular accident. Aware. 5. Anemia. Again, the patient is undergoing endoscopy today. We will monitor the hemoglobin and hematocrit closely. 6. Hypothyroidism. Continue on Synthroid. 7. Hypertension. Controlled. 8. We will consult physical therapy.
[2016-07-25] MEDS: SODIUM BICARBONATE PO SCH ×2 (19:27→21:24)
[2016-07-25] MEDS: CARAFATE LIQUID PO SCH ×2 (19:28→21:23)
[2016-07-25] MEDS: CATAPRES-TTS-1 TD SCH (23:57)
[2016-07-26] MEDS ORDERED: MORPHINE IV ONE (03:17)
[2016-07-26 06:30] LABS: MANUAL DIFF NEEDED? NO
[2016-07-26] MEDS ORDERED: SODIUM CHLORIDE 0.9% INJ PRN (06:30)
[2016-07-26] MEDS: CARAFATE LIQUID PO SCH ×3 (06:39→17:31)
[2016-07-26] MEDS: SYNTHROID IV SCH (06:39)
[2016-07-26] MEDS: SODIUM CHLORIDE 0.9% INJ SCH ×3 (06:40→21:08)
[2016-07-26 06:41] LABS: BASO% 0.3 % (0.0-0.8); EOS# 0.14 X1000 (0.0-0.7); EOS% 1.3 % (0.0-10.0); HEMOGLOBIN 8.2 g/dL (12.0-16.0); IMM GRAN# 0.29 X1000 (0.0-0.04); IMM GRAN% 2.7 % (0.0-0.5); LYMPH# 2.28 X1000 (1.2-3.4); LYMPH% 21.5 % (20.5-51.1); MCH 29.4 PG (27-31); MCHC 34.2 g/dL (33-37); MONO% 11.3 % (1.7-9.3); NEUT% 62.9 % (42.2-75.2); PLT 323 X1000 (130-400); RBC 2.79 XMIL (4.2-5.4)
[2016-07-26] MEDS ORDERED: SYNTHROID PO SCH (07:00)
[2016-07-26 07:18] LABS: AGAP 8; ALBUMIN 1.7 g/dL (3.5-5.0); BUN 2 mg/dL (8-22); CALCIUM 8.2 mg/dL (8.8-10.2); CHLORIDE 106 mmol/L (98-107); COSMO 258; MAGNESIUM 1.6 mg/dL (1.5-2.7); SODIUM 131 mmol/L (136-145); TCO2 17 mmol/L (25-35)
[2016-07-26 07:45] LABS: HEMOGLOBIN A1C 4.4 % (4.8-6.0)
[2016-07-26] MEDS ORDERED: SODIUM PHOSPHATE 40 MMOL in NS 250 ML IV ONE (10:37)
[2016-07-26] MEDS: CENTRUM SILVER PO SCH (10:53)
[2016-07-26] MEDS: SODIUM BICARBONATE PO SCH (10:54)
[2016-07-26] MEDS: ICAR-C PO SCH (10:54)
[2016-07-26] MEDS: MAG-OX PO SCH (10:55)
[2016-07-26] MEDS: CARDIZEM CD PO SCH (10:57)
[2016-07-26] MEDS: DEPAKOTE PO SCH (10:57)
[2016-07-26] MEDS: COLACE PO SCH (10:58)
[2016-07-26] MEDS: ALBUMIN 25% IV SCH (11:00)
[2016-07-26] MEDS: LASIX IV SCH (11:00)
[2016-07-26] MEDS: PROTONIX IV SCH ×2 (11:02→21:08)
[2016-07-26] MEDS: SSD CREAM TOP SCH (11:02)
--- NOTE | 2016-07-26 15:13 | PROGRESS NOTE ---
DATE: 07/26/2016 SUBJECTIVE: The patient is currently complaining of difficulty swallowing and states that whenever she tries to drink liquids it comes back up. The patient does have diffuse anasarca as well. OBJECTIVE: Vital Signs: Temperature 98.6 degrees, blood pressure 135/88, heart rate 96, respirations 18, O2 saturation is 95% on room air. General: This is a chronically ill-appearing, elderly female, lying in bed, in no acute distress. Head: Normocephalic, atraumatic. Heart: S1, S2. Normal. Regular rate and rhythm. Lungs: Clear to auscultation bilaterally. No crackles. No rales. Abdomen: Positive bowel sounds. Soft, nontender, nondistended. Extremities: There is 3+ edema in the upper and lower extremities. Neurologic : The patient is awake and alert. The patient does have left hemiparesis. LABS: White blood cell count 10, hemoglobin 8.2, hematocrit 24, platelets 323, 000. Sodium 131, potassium 5, chloride 106, CO2 17, BUN 2, creatinine 0.6, glucose 88, phosphorus 1.8, calcium 8.2, magnesium 1.6, albumin 1.7. ASSESSMENT AND PLAN: 1. Dysphagia status post esophageal dilation. The patient still continues to complain of difficulty swallowing liquids as well as pills. Will await further recommendations from GI. 2. Nausea with vomiting. We will continue on p.r.n. antiemetic therapy. 3. Anasarca. The patient has severe hypoalbuminemia. Will start lasix plus albumin infusions. 4. History of cerebrovascular accident with hemiparesis. Aware. 5. Hyponatremia. Will continue to monitor this closely. 6. Hypothyroidism. Continue on Synthroid. 7. Hypertension. Continue on clonidine for now. The patient is unable to take her oral antihypertensives at this time due to difficulty with dysphagia. 8. Anemia. The patient's hemoglobin and hematocrit have decreased since yesterday. We will continue to monitor this and transfuse p.r.n. 9. Hypophosphatemia. Will replace the patient's phosphorus. 10. Hypomagnesemia. Will replace the patient's magnesium. 11. Left thigh dermatitis. Continue with the ointment that is being applied by wound care. 12. Severe protein calorie malnutrition. Albumin infusions have been started. The patient may require TPN if she continues to have poor oral intake. [facility]
--- NOTE | 2016-07-26 15:59 | PROGRESS NOTE ---
DATE: 07/26/2016 SUBJECTIVE: Patient is currently resting in bed. Her family is present at bedside. She had an EGD done yesterday which showed evidence of severe esophagitis with distal esophageal ulceration, distal esophageal stricture, and a 2 cm hiatal hernia. The patient underwent a 54-Serbian Vazquez dilation per Dr. Loya. OBJECTIVE: Vital signs: Temperature of 98.6 degrees, pulse of 96, respiratory 18, blood pressure 134/88, saturating 94% room air. General Appearance: Moderately built, moderately nourished, lying in bed, in no acute distress. HEENT: Pale conjunctivae. No icterus. Neck: Supple. Abdomen: Mild protuberance noted. Bowel sounds are hypoactive. No rebound or guarding. Extremities: No cyanosis or clubbing. She has heel protectors. Neurologic: She has left side partial weakness from a prior CVA. LAB: Hemoglobin and hematocrit are 8.2 and 24, white count of 10.6, platelet count of 323,000. Sodium 131, potassium 5, chloride 106, bicarb 17, anion gap of 8, BUN of 2, creatinine 0.6, glucose of 88, calcium is 8.2, phosphorus 1.8, magnesium 1.6. AST 30, ALT 11, alkaline phosphatase 106. Total protein 4.7, albumin 1.7. Urinalysis and culture showing E. coli, group D, and yeast. IMPRESSIONS AND PLAN: 1. Dysphagia status is esophagogastroduodenoscopy and esophageal dilation. Continue on aspirin precautions and continue on Glucerna 1 can t.i.d. She has low albumin and if she continues to have poor p.o. intake she may benefit from IV PPN or TPN. 2. Severe esophagitis. Will continue on Protonix and will continue on Carafate 1 g every 6 hours. 3. Hypoalbuminemia. Continue to watch and advance diet as tolerated. 4. History of cerebrovascular accident with residual left-sided weakness. Aware. 5. Anemia. Continue watching and transfuse as needed. 6. The above plan was discussed with the patient and family and all questions answered.
[2016-07-26] MEDS: DEPACON 500 MG in NS 50 ML IV SCH (17:30)
[2016-07-27] MEDS: LASIX IV SCH ×3 (00:15→22:58)
[2016-07-27] MEDS: SSD CREAM TOP SCH ×3 (00:16→22:58)
[2016-07-27] MEDS: MAG-OX PO SCH ×3 (00:16→22:59)
[2016-07-27] MEDS: MIRALAX PO SCH ×3 (00:16→22:59)
[2016-07-27] MEDS: CARAFATE LIQUID PO SCH ×5 (00:16→22:58)
[2016-07-27] MEDS: ICAR-C PO SCH ×3 (00:16→22:58)
[2016-07-27 06:42] LABS: MANUAL DIFF NEEDED? NO
[2016-07-27] MEDS: SYNTHROID IV SCH (06:43)
[2016-07-27 06:53] LABS: BASO% 0.3 % (0.0-0.8); EOS# 0.15 X1000 (0.0-0.7); EOS% 2.1 % (0.0-10.0); HEMATOCRIT 21.9 % (37.0-47.0); HEMOGLOBIN 7.5 g/dL (12.0-16.0); IMM GRAN# 0.13 X1000 (0.0-0.04); IMM GRAN% 1.8 % (0.0-0.5); LYMPH# 1.82 X1000 (1.2-3.4); LYMPH% 25.4 % (20.5-51.1); MCH 29.3 PG (27-31); MCHC 34.2 g/dL (33-37); MCV 85.5 FL (81-99); MONO# 0.83 X1000 (0.11-0.59); MONO% 11.6 % (1.7-9.3); NEUT% 58.8 % (42.2-75.2); PLT 278 X1000 (130-400); RBC 2.56 XMIL (4.2-5.4)
[2016-07-27 07:09] LABS: AGAP 11; BUN 2 mg/dL (8-22); CALCIUM 7.8 mg/dL (8.8-10.2); CHLORIDE 103 mmol/L (98-107); COSMO 267; MAGNESIUM 1.5 mg/dL (1.5-2.7); POTASSIUM 3.8 mmol/L (3.5-5.1); SODIUM 136 mmol/L (136-145); TCO2 22 mmol/L (25-35)
[2016-07-27] MEDS: CARDIZEM CD PO SCH (08:52)
[2016-07-27] MEDS: ALBUMIN 25% IV SCH (08:52)
[2016-07-27] MEDS: DEPACON 500 MG in NS 50 ML IV SCH (08:52)
[2016-07-27] MEDS: COLACE PO SCH (08:52)
[2016-07-27] MEDS: CENTRUM SILVER PO SCH (08:52)
[2016-07-27] MEDS: SODIUM CHLORIDE 0.9% INJ SCH ×2 (08:53→22:58)
[2016-07-27] MEDS: PROTONIX IV SCH ×2 (08:53→22:58)
--- NOTE | 2016-07-27 11:07 | PROGRESS NOTE ---
DATE: 07/27/2016 SUBJECTIVE: The patient is resting in bed. Her family is currently at the bedside. She has dropped her hematocrit to 21. There are no signs of overt GI bleeding. She does have severe reflux esophagitis on EGD which could have caused anemia. The patient also has constipation. Her last bowel movement was a couple of days ago which was liquid brown. Vital signs: Temperature of 99 degrees, pulse rate 110, respiratory rate 18, blood pressure of 102/65, saturating 92% on room air. General Appearance: Thinly built, lying in bed, in no distress. HEENT: No pallor. No icterus. Neck: Supple. Abdomen: Soft, nontender, nondistended. Bowel sounds are hypoactive. No rebound. No guarding. Extremities: No cyanosis, clubbing. She has heel protectors. Neurologic: She has baseline left-sided weakness from a CVA. She was alert and awake. Answers questions. LABS: Hemoglobin and hematocrit is 7.5, 21.9. White count of 7.1, platelet count of 278,000. Sodium 136, potassium 3.8, chloride 103, bicarb of 22, anion gap of 11, BUN of 2 , creatinine 0.6. Glucose of 74. Calcium is 7.8, phosphorus 4.2, magnesium 1.5, albumin of 2. IMPRESSION AND PLAN: 1. Dysphagia. We will encourage the patient to start taking liquids and we can also supplement with Ensure 3 times daily. 2. Anemia. Patient may benefit from blood transfusion. Will leave it to the discretion of primary team. 3. Constipation. Will continue MiraLAX twice daily. 4. At some point, patient will need to have a colonoscopy but we will let her heal from severe esophagitis so that she could tolerate bowel prep in order to pursue colonoscopy in the near future. 5. Malnutrition. She may need TPN if she continues to have poor oral intake. 6. Above plan was discussed with the patient and family and answered all questions. [facility]
--- NOTE | 2016-07-27 11:31 | PROGRESS NOTE ---
DATE: 07/27/2016 SUBJECTIVE: The patient is resting comfortably in bed. She has less swelling in her legs today after being started on IV Lasix and albumin. She is stating that she wants to try and eat today. OBJECTIVE: Vital Signs: Temperature 99 degrees, blood pressure 102/65, heart rate 110, respirations 18, O2 saturations 97% on room air. General: This is a chronically ill-appearing, elderly female, lying in bed, in no acute distress. HEENT: Head normocephalic and atraumatic. Heart: S1 and S2 normal. Tachycardic. Lungs: Clear to auscultation bilaterally. No wheezes, no rales. No rhonchi. Abdomen: Positive bowel sounds. Soft, nontender, nondistended. Extremities: There is 2+ edema. No cyanosis. No calf tenderness. Neurologic : The patient is awake and alert. Labs: White blood cell count 7.1, hemoglobin 7.5, hematocrit 21, platelets 278, 000. Sodium 136, potassium 3.8, chloride 103, CO2 22, BUN 2, creatinine 0.6, glucose 74. Magnesium 1.5, phosphorus 4.2, calcium 7.8. ASSESSMENT AND PLAN: 1. Dysphagia, status post esophageal dilation. Continue on Protonix. The patient is currently on a full liquid diet. 2. Anasarca. Improved. Continue on intravenous Lasix and intravenous albumin. 3. History of cerebrovascular accident with hemiparesis. Aware. 4. Hypothyroidism. Continue on Synthroid. 5. Hypomagnesemia. We will replace the patient's magnesium. 6. Left thigh dermatitis. Continue with the ointment that is being applied by wound care. 7. Severe protein calorie malnutrition. Continue with supplements and encourage the patient to eat more. 8. Disposition. The patient will be discharged to rehabilitation once she is medically stable. [facility]
--- NOTE | 2016-07-27 13:20 | ECHO REPORT ---
ORDER DATE: 07/26/2016 ECHOCARDIOGRAPHIC MEASUREMENTS: 1. Interventricular septum 1.0. 2. Left ventricular posterior wall 1.0. 3. Diastolic diameter 3.3. 4. Left atrium 3.7. 5. Aorta 3.4. INTERPRETATION: 1. Normal left ventricular cavity size. Hyperdynamic circulation. Estimated ejection fraction of 70%. 2. Mitral valve was normal. 3. Pulmonic valve not well visualized. 4. Tricuspid valve was normal. There was trace to mild tricuspid regurgitation. Peak velocity across the tricuspid valve was 3.0 m/sec. 5. Pulmonary artery systolic pressure of 46 mmHg. 6. Peak velocity across the aortic valve was a 2.4 m/sec. There is no aortic stenosis or regurgitation. 7. There is no pericardial effusion or obvious intracardiac mass or thrombus seen.
[2016-07-28] MEDS: SYNTHROID IV SCH (06:40)
[2016-07-28] MEDS: CARAFATE LIQUID PO SCH ×4 (06:40→22:43)
[2016-07-28 07:21] LABS: AGAP 11; ALBUMIN 2.1 g/dL (3.5-5.0); BUN 1 mg/dL (8-22); CALCIUM 8.1 mg/dL (8.8-10.2); CHLORIDE 97 mmol/L (98-107); COSMO 266; MAGNESIUM 1.4 mg/dL (1.5-2.7); POTASSIUM 2.9 mmol/L (3.5-5.1); SODIUM 135 mmol/L (136-145); TCO2 27 mmol/L (25-35)
[2016-07-28 07:28] LABS: FERRITIN 163 ng/mL (13-150)
[2016-07-28] MEDS ORDERED: POTASSIUM CHLORIDE 60 MEQ in NS 500 ML IV ONE (07:36)
[2016-07-28] MEDS ORDERED: MAGNESIUM SULFATE 2 GM/S.W.I. 50 ML IV ONE (07:37)
[2016-07-28 07:44] LABS: TOTAL IRON 52 ug/dL (49-151)
[2016-07-28 07:45] LABS: UNBOUND IRON < 1 ug/dL (112-346)
[2016-07-28] MEDS ORDERED: FOLIC ACID 1 MG in NS 50 ML IV SCH (09:00)
[2016-07-28] MEDS: MAG-OX PO SCH ×2 (09:08→22:43)
[2016-07-28] MEDS: ALBUMIN 25% IV SCH (09:08)
[2016-07-28] MEDS: CENTRUM SILVER PO SCH (09:08)
[2016-07-28] MEDS: ICAR-C PO SCH ×2 (09:08→22:43)
[2016-07-28] MEDS: COLACE PO SCH (09:08)
[2016-07-28] MEDS: MIRALAX PO SCH ×2 (09:08→22:44)
[2016-07-28] MEDS: CARDIZEM CD PO SCH (09:08)
[2016-07-28] MEDS: SSD CREAM TOP SCH ×2 (09:09→22:44)
[2016-07-28] MEDS: PROTONIX IV SCH ×2 (09:09→22:43)
[2016-07-28 11:01] LABS: INR 1.75; PROTIME 18.7 Seconds (9.2-11.7)
[2016-07-28] MEDS ORDERED: NS 250 ML ONE (13:15)
[2016-07-28] MEDS: LASIX IV SCH ×2 (15:32→22:43)
[2016-07-28] MEDS: DEPACON 500 MG in NS 50 ML IV SCH (15:32)
[2016-07-28] MEDS: FOLIC ACID PO SCH (15:33)
[2016-07-28] MEDS: VENOFER 200 MG in NS 150 ML IV SCH (18:23)
[2016-07-28] MEDS ORDERED: POTASSIUM CHLORIDE 20% LIQUID PO ONE (20:00)
--- NOTE | 2016-07-28 22:19 | PROGRESS NOTE ---
DATE: 07/28/2016 SUBJECTIVE: The patient is resting comfortably in bed. The edema in her lower extremities is improved. The patient has put out 3.6 L so far. OBJECTIVE: Vital signs: Temperature 99, blood pressure 113/79, heart rate 102, respirations 20, O2 saturation 95% on room air. General: This is an elderly female lying comfortably in bed in no acute distress. Head: Normocephalic, atraumatic. Heart: S1, S2 normal. Tachycardic. Lungs: Clear to auscultation bilaterally. No wheezing, no rales, no rhonchi. Abdomen: Positive bowel sounds, soft, nontender, nondistended. Extremities: Edema 2+. Neurologic: The patient is awake and alert. LABORATORY DATA: INR 1.7. Sodium 135, potassium 2.9, chloride 97, CO2 of 27, BUN 1, creatinine 0.6, glucose 92, magnesium 1.4, phosphorus 3.3, calcium 8.1, albumin 2.1. Vitamin B12 1769. Folate 3.8. ASSESSMENT AND PLAN: 1. Dysphagia status post esophageal dilation. The patient appears to be tolerating a full liquid diet. Will continue to encourage the patient to increase her p.o. intake. The patient states that she still has difficulty with swallowing pills. 2. Anasarca. Improved. Continue with IV Lasix. 3. Hypothyroidism. Continue Synthroid. 4. Hypokalemia. Will replace the patient's potassium. 5. Hypomagnesemia. Will replace the patient's magnesium. 6. Anemia. The patient is iron deficient. Will start the patient on Venofer infusions and transfuse 2 units of packed red blood cells today. 7. Coagulopathy. The patient's INR is elevated at 1.7. We will continue to monitor this closely. 8. Folate deficiency. Will start the patient on folic acid replacement. 9. History of cerebrovascular accident. Aware. 10.Left thigh dermatitis. Continue with wound care. 11.Severe protein calorie malnutrition. Continue on supplements.
[2016-07-28] MEDS: SODIUM CHLORIDE 0.9% INJ SCH (22:43)
[2016-07-28] MEDS ORDERED: NS 500 ML ONE (23:11)
[2016-07-29] MEDS: CARAFATE LIQUID PO SCH ×4 (06:20→20:23)
[2016-07-29] MEDS: SYNTHROID IV SCH (06:20)
[2016-07-29] MEDS: SODIUM CHLORIDE 0.9% INJ PRN (06:20)
[2016-07-29 09:10] LABS: MANUAL DIFF NEEDED? NO
[2016-07-29 09:13] LABS: BASO% 0.1 % (0.0-0.8); EOS# 0.09 X1000 (0.0-0.7); EOS% 1.3 % (0.0-10.0); HEMATOCRIT 31.7 % (37.0-47.0); HEMOGLOBIN 11.4 g/dL (12.0-16.0); IMM GRAN# 0.06 X1000 (0.0-0.04); IMM GRAN% 0.9 % (0.0-0.5); LYMPH# 1.25 X1000 (1.2-3.4); LYMPH% 17.8 % (20.5-51.1); MCH 30.1 PG (27-31); MCV 83.6 FL (81-99); MONO# 1.08 X1000 (0.11-0.59); MONO% 15.3 % (1.7-9.3); MPV 9.3 FL (7.4-10.4); NEUT% 64.6 % (42.2-75.2); PLT 179 X1000 (130-400); RBC 3.79 XMIL (4.2-5.4)
[2016-07-29 09:41] LABS: AGAP 8; ALBUMIN 2.4 g/dL (3.5-5.0); BUN 1 mg/dL (8-22); CALCIUM 8.1 mg/dL (8.8-10.2); CHLORIDE 94 mmol/L (98-107); COSMO 266; MAGNESIUM 1.7 mg/dL (1.5-2.7); POTASSIUM 2.8 mmol/L (3.5-5.1); SODIUM 135 mmol/L (136-145); TCO2 33 mmol/L (25-35)
[2016-07-29 09:53] LABS: INR 1.75; PROTIME 18.7 Seconds (9.2-11.7)
[2016-07-29] MEDS: ALBUMIN 25% IV SCH (11:03)
[2016-07-29] MEDS: MAG-OX PO SCH ×3 (11:06→20:24)
[2016-07-29] MEDS: CENTRUM SILVER PO SCH ×2 (11:06→15:03)
[2016-07-29] MEDS: CARDIZEM CD PO SCH ×2 (11:06→15:03)
[2016-07-29] MEDS: FOLIC ACID PO SCH ×2 (11:06→15:04)
[2016-07-29] MEDS: ICAR-C PO SCH ×3 (11:06→20:24)
[2016-07-29] MEDS: COLACE PO SCH ×2 (11:06→15:03)
[2016-07-29] MEDS: MIRALAX PO SCH ×2 (11:06→20:24)
[2016-07-29] MEDS: SODIUM CHLORIDE 0.9% INJ SCH ×2 (11:07→20:23)
[2016-07-29] MEDS: PROTONIX IV SCH ×2 (11:07→20:23)
[2016-07-29] MEDS: LASIX IV SCH ×2 (11:08→22:46)
[2016-07-29] MEDS: SSD CREAM TOP SCH ×2 (11:08→20:24)
[2016-07-29] MEDS ORDERED: POTASSIUM PHOSPHATE 40 MMOL in NS 250 ML IV ONE (11:11)
[2016-07-29] MEDS ORDERED: MAGNESIUM SULFATE 2 GM/S.W.I. 50 ML IV ONE (11:12)
[2016-07-29] MEDS: VENOFER 200 MG in NS 150 ML IV SCH (11:47)
--- NOTE | 2016-07-29 13:34 | PROGRESS NOTE ---
DATE: 07/29/2016 SUBJECTIVE: The patient states that she is feeling okay. She was initially refusing all care this morning. OBJECTIVE: Vital signs: Temperature 97.4, blood pressure 135/85, heart rate 103, respirations 18. O2 saturation is 97% on 1 liter nasal cannula. General: This is an elderly female lying comfortably in bed in no acute distress. Head: Normocephalic, atraumatic. Heart: S1, S2 normal. Regular rate and rhythm. Lungs: Clear to auscultation bilaterally. No wheezing. No rales. No rhonchi. Abdomen: Positive bowel sounds, soft, nontender, nondistended. Extremities: 2+ edema in the lower extremities, 3+ in the upper extremities. Neurologic: The patient is awake and alert. LABORATORY: White blood cell count, hemoglobin 11, hematocrit 31, platelets 179, INR 1.75, sodium 135, potassium 2.8, chloride 94, CO2 33, BUN 1, creatinine 0.5, glucose 92, phosphorus 2.1, calcium 8.1, magnesium 1.7. ASSESSMENT AND PLAN: 1. Dysphagia status post esophageal dilation. Continue on the current diet. 2. Severe esophagitis with esophageal ulceration. Continue on IV Protonix. 3. Anasarca. Improved. Continue IV albumin and IV Lasix infusions. 4. Hypothyroidism. Continue on Synthroid. 5. Hypokalemia. Will replace the patient's potassium. 6. Hypomagnesemia. Will replace the patient's magnesium. 7. Anemia. Improved. The patient is currently receiving Venofer infusion. The patient did receive two units of packed red blood cells yesterday. 8. Coagulopathy. The patient's INR is elevated at 1.7. We will continue to monitor this closely. 9. Folate deficiency. Continue on folic acid replacement. 10. History of cerebrovascular accident. Aware. 11. Left thigh dermatitis. Improved. 12. Severe protein-calorie malnutrition. Continue on supplement. 13. Disposition. The patient will be discharged to rehabilitation once she is medically stable.
[2016-07-29] MEDS: DEPACON 500 MG in NS 50 ML IV SCH (13:42)
--- NOTE | 2016-07-30 03:18 | PROGRESS NOTE ---
DATE: 07/29/2016 SUBJECTIVE: The patient is resting comfortably. She just had some full liquid meal which is 100%. OBJECTIVE: Vital Signs: Temperature 99 degrees, blood pressure 120/80, heart rate 103, respirations 20, O2 saturation 95%. General: Elderly lady, lying comfortably in bed. In no acute distress. HEENT: No scleral icterus. Mild conjunctival pallor. Neck: Supple. Trachea in the midline. Heart: Normal first and second heart sounds. Mild tachycardia. Lungs: Clear. Abdomen: No organomegaly. No ascites. Bowel sounds present and normal. There is mild distention of the abdomen. Extremities: There is 2+ edema. Neurological: The patient has no neurological deficit. Laboratory Data: INR 1.7. Potassium is low at 2.9. Albumin low at 2.1 and magnesium is low at 1.4. IMPRESSION: 1. Dysphagia. She had an esophagogastroduodenoscopy with dilation. She still hesitant to eat a soft diet. We might try a gastrointestinal soft. She has a problem with pills as well. 2. Anasarca, is improving. 3. Hypothyroidism, on Synthroid. 4. Multiple laboratory abnormalities, being corrected. I think she is making progress. We will advance the diet.
[2016-07-30] MEDS: SODIUM CHLORIDE 0.9% INJ PRN (06:13)
[2016-07-30] MEDS: SYNTHROID IV SCH (06:13)
[2016-07-30] MEDS: CARAFATE LIQUID PO SCH ×4 (06:13→22:14)
[2016-07-30 07:01] LABS: MANUAL DIFF NEEDED? NO
[2016-07-30 07:08] LABS: BASO% 0.1 % (0.0-0.8); EOS# 0.04 X1000 (0.0-0.7); EOS% 0.5 % (0.0-10.0); HEMATOCRIT 32.3 % (37.0-47.0); HEMOGLOBIN 11.5 g/dL (12.0-16.0); IMM GRAN# 0.02 X1000 (0.0-0.04); IMM GRAN% 0.3 % (0.0-0.5); LYMPH# 1.35 X1000 (1.2-3.4); LYMPH% 17.7 % (20.5-51.1); MCH 29.9 PG (27-31); MCHC 35.6 g/dL (33-37); MCV 83.9 FL (81-99); MONO# 1.15 X1000 (0.11-0.59); MONO% 15.1 % (1.7-9.3); MPV 10.2 FL (7.4-10.4); NEUT% 66.3 % (42.2-75.2); PLT 168 X1000 (130-400); RBC 3.85 XMIL (4.2-5.4)
[2016-07-30 07:25] LABS: AGAP 10; ALBUMIN 2.6 g/dL (3.5-5.0); BUN 1 mg/dL (8-22); CALCIUM 8.2 mg/dL (8.8-10.2); CHLORIDE 91 mmol/L (98-107); COSMO 269; MAGNESIUM 1.8 mg/dL (1.5-2.7); POTASSIUM 2.7 mmol/L (3.5-5.1); SODIUM 137 mmol/L (136-145); TCO2 36 mmol/L (25-35)
[2016-07-30] MEDS ORDERED: POTASSIUM CHLORIDE 60 MEQ in NS 500 ML IV ONE (07:27)
[2016-07-30] MEDS ORDERED: MAGNESIUM SULFATE 2 GM/S.W.I. 50 ML IV ONE (07:28)
[2016-07-30 07:52] LABS: INR 1.65; PROTIME 17.6 Seconds (9.2-11.7)
[2016-07-30] MEDS: PROTONIX IV SCH ×2 (08:38→22:14)
[2016-07-30] MEDS: SODIUM CHLORIDE 0.9% INJ SCH ×2 (08:39→22:14)
[2016-07-30] MEDS: LASIX IV SCH (08:42)
[2016-07-30] MEDS: CARDIZEM CD PO SCH ×2 (08:42→08:51)
[2016-07-30] MEDS: FOLIC ACID PO SCH ×2 (08:42→08:52)
[2016-07-30] MEDS: CENTRUM SILVER PO SCH ×2 (08:42→08:51)
[2016-07-30] MEDS: MAG-OX PO SCH ×3 (08:42→22:15)
[2016-07-30] MEDS: MIRALAX PO SCH ×2 (08:42→22:14)
[2016-07-30] MEDS: COLACE PO SCH (08:42)
[2016-07-30] MEDS: ICAR-C PO SCH ×3 (08:42→22:15)
[2016-07-30] MEDS: SSD CREAM TOP SCH ×2 (08:50→22:14)
[2016-07-30] MEDS: VENOFER 200 MG in NS 150 ML IV SCH (09:10)
[2016-07-30] MEDS: DEPACON 500 MG in NS 50 ML IV SCH (10:50)
[2016-07-30] MEDS: ALBUMIN 25% IV SCH (12:43)
--- NOTE | 2016-07-30 15:32 | PROGRESS NOTE ---
DATE: 07/30/2016 SUBJECTIVE: The patient is resting comfortably in bed. The edema in her lower extremities is markedly improved. She states that she still cannot swallow pills. OBJECTIVE: Vital Signs: Temperature 97.9 degrees, blood pressure 105/63, heart rate 92, respirations 20. O2 saturations 98% on 2 L nasal cannula. General: This is an elderly female, lying comfortably in bed, in no acute distress. Head: Normocephalic, atraumatic. Heart: S1, S2 normal. Regular rate and rhythm. Lungs: Clear to auscultation bilaterally. No wheezes, no rales, no rhonchi. Abdomen: Positive bowel sounds. Soft, nontender, nondistended. Extremities: There is +1 edema in the lower extremities. Neurologic: The patient is awake and alert. LABS: Sodium 137, potassium 2.7, chloride 91, CO2 36. BUN 1, creatinine 0.5. Glucose 81. White blood cell count 7.6. Hemoglobin 11, hematocrit 32, platelets 168,000. ASSESSMENT AND PLAN: 1. Dysphagia, status post esophageal dilation. Continue on GI soft diet. The patient's medications will be crushed and put in applesauce. 2. Severe esophagitis with esophageal ulceration. Continue on IV Protonix. 3. Anasarca. Improved. Continue on IV albumin and IV Lasix. 4. Hypothyroidism. Continue on Synthroid. 5. Hypokalemia. Will replace the patient's potassium. 6. Anemia. The patient's hemoglobin and hematocrit is stable. 7. Coagulopathy. Continue to monitor this closely. 8. Left thigh dermatitis. Improved. 9. Folate deficiency. Continue on folic acid replacement. 10. History of cerebrovascular accident. Aware. 11. Severe protein calorie malnutrition. We will continue on the supplements. DISPOSITION: We will consult clinical social work aide for rehab placement.
[2016-07-31] MEDS: SYNTHROID IV SCH (06:14)
[2016-07-31] MEDS: SODIUM CHLORIDE 0.9% INJ PRN (06:14)
[2016-07-31] MEDS: CARAFATE LIQUID PO SCH ×4 (06:14→21:56)
[2016-07-31 06:43] LABS: HEMOGLOBIN 10.3 g/dL (12.0-16.0); MCH 30.2 PG (27-31); MCHC 34.3 g/dL (33-37); MPV 10.4 FL (7.4-10.4); RBC 3.41 XMIL (4.2-5.4)
[2016-07-31 06:57] LABS: INR 1.75; PROTIME 18.7 Seconds (9.2-11.7)
[2016-07-31 07:18] LABS: AGAP 8; BUN 1 mg/dL (8-22); CALCIUM 8.7 mg/dL (8.8-10.2); CHLORIDE 89 mmol/L (98-107); COSMO 263; POTASSIUM 2.6 mmol/L (3.5-5.1); SODIUM 134 mmol/L (136-145); TCO2 37 mmol/L (25-35)
[2016-07-31] MEDS: ALBUMIN 25% IV SCH (08:57)
[2016-07-31] MEDS: DEPACON 500 MG in NS 50 ML IV SCH (08:58)
[2016-07-31] MEDS: SODIUM CHLORIDE 0.9% INJ SCH ×2 (08:58→21:57)
[2016-07-31] MEDS: PROTONIX IV SCH ×2 (08:58→21:56)
[2016-07-31] MEDS: VENOFER 200 MG in NS 150 ML IV SCH (08:58)
[2016-07-31] MEDS: COLACE PO SCH ×2 (08:59→09:05)
[2016-07-31] MEDS: MAG-OX PO SCH ×3 (08:59→21:57)
[2016-07-31] MEDS: CENTRUM SILVER PO SCH ×2 (08:59→09:04)
[2016-07-31] MEDS: SSD CREAM TOP SCH ×2 (08:59→21:57)
[2016-07-31] MEDS: LASIX IV SCH (08:59)
[2016-07-31] MEDS: FOLIC ACID PO SCH (08:59)
[2016-07-31] MEDS: ICAR-C PO SCH ×3 (08:59→21:57)
[2016-07-31] MEDS: MIRALAX PO SCH ×3 (08:59→21:57)
[2016-07-31] MEDS: CARDIZEM CD PO SCH ×2 (08:59→09:04)
[2016-07-31] MEDS ORDERED: VITAMIN K 10 MG in NS 50 ML IV ONE (10:36)
--- NOTE | 2016-07-31 12:32 | PROGRESS NOTE ---
DATE: 07/31/2016 SUBJECTIVE: Patient is currently upset at physical therapy. She does not want undergo physical therapy at this time. She tried to eat some bites this morning but still feels that she has trouble keeping food down. She was able to tolerate liquids better than the solid food. She has a known history of severe esophagitis, esophageal stricture which was dilated by Dr. Loya. The patient had 1 bowel movement today. OBJECTIVE: Vital signs: Temperature 99.1 degrees, pulse rate of 98, respiratory rate 18, blood pressure 96/50, saturating 90% on nasal cannula. General Appearance: Thinly built, lying in bed, in no acute distress. HEENT: Pale conjunctivae. No icterus. Neck: Supple. Abdomen: Soft, nontender, nondistended. Bowel sounds. No guarding or rebound. Extremities : Heel protectors noted. Neurologic: Alert, awake, oriented x3. She also has baseline CVA and weakness in the left side of the body. LABS: Hemoglobin and hematocrit are 10.3 and 30, white count of 5.9, platelet count of 137,000. INR 1.75, sodium 130, potassium 2.6, chloride of 89, bicarbonate of 37, anion gap of 8, BUN of 1, creatinine 0.5, glucose of 84, calcium is 8.7, phosphorus 1.7, magnesium 2.0, albumin is 3. IMPRESSION AND PLAN: 1. Dysphagia status post esophageal dilation. Continue on a GI soft diet. She may benefit from supplementing with Ensure or Glucerna. According the patient, she has cannot take milk products so will ask potter or ceramic artist to help with her dietary needs. She will follow gastroesophageal reflux life changes. We will continue Protonix twice daily for now and when she is able to be discharged we will transition her to Protonix once daily for next 3-6 months. We will also continue on Carafate 1 g 6 hours for severe esophagitis noted on EGD. 2. Anemia. She is currently on iron IV per the primary care team and once discharge to be put on Iron-C 1 capsule p.o. b.i.d. for 3 months. 3. History of cerebrovascular accident, stable. 4. Mild coagulopathy. INR 1.75. Currently being worked up by primary team. 5. The above plan was discussed with the patient and the nurse and family at bedside and all questions answered. [facility]
--- NOTE | 2016-07-31 20:42 | PROGRESS NOTE ---
DATE: 07/31/2016 SUBJECTIVE: Follow up the patient with dysphagia, anemia, and severe esophagitis. The patient is still complaining of having a lot of pain when she swallows. OBJECTIVE: Vital Signs: Blood pressure 122/68, pulse of 86, respiration 18, temperature 98.2 degrees, sat 100% in room air. General Appearance: Thin, white female, in no acute distress. HEENT: Anicteric. Clear conjunctivae. Neck: Supple. No jugular venous distention. No bruit. Cardiovascular: S1, S2. Normal rate and rhythm. No murmur, rubs, or gallops. Pulmonary: Clear to auscultation bilaterally. Gastrointestinal: Soft, nontender, nondistended. Normoactive bowel sounds. Oral cavity are raw. LABORATORY: White count of 5.94, hemoglobin 10.2, hematocrit of 30.0, platelets 137,000. Sodium 134, potassium 2.6, chloride 89, bicarb 37. BUN 1, creatinine 0.5. Glucose of 84. ASSESSMENT/PLAN: A 66-year-old white female admitted to the hospital for dysphagia and was found to have significant esophagitis and gastritis. 1. Severe esophagitis and gastritis with esophageal ulceration. We will continue IV Protonix. Consider nystatin swish and swallow and Diflucan and concerning for yeast infection. 2. Dysphagia, status post esophageal dilation. Gastroenterology is still following. We will start the patient on Ensure. 3. Anasarca. Continue IV albumin. Probably due to severe protein calorie deficiency. 4. Electrolyte abnormality. We will continue to replete. Will encourage p.o. intake. 5. Hypertension. We will continue clonidine and diltiazem. 6. Electrolyte abnormality. We will continue to replete. 7. Deep vein thrombosis prophylaxis. Sequential compression devices for now. CODE STATUS: The patient is a full code. [facility]
[2016-07-31] MEDS: DIFLUCAN 200 MG/NS 100 ML IV SCH (22:19)
[2016-07-31] MEDS: MYCOSTATIN SUSP PO SCH ×2 (22:19)
[2016-08-01] MEDS: SYNTHROID IV SCH (06:47)
[2016-08-01 07:45] LABS: HEMATOCRIT 30.2 % (37.0-47.0); HEMOGLOBIN 10.5 g/dL (12.0-16.0); MCH 30.3 PG (27-31); MCHC 34.8 g/dL (33-37); MPV 10.5 FL (7.4-10.4); RBC 3.47 XMIL (4.2-5.4)
[2016-08-01 07:59] LABS: INR 1.61; PROTIME 17.1 Seconds (9.2-11.7)
[2016-08-01 09:11] LABS: AGAP 4; ALBUMIN 3.3 g/dL (3.5-5.0); BUN 2 mg/dL (8-22); CALCIUM 9.3 mg/dL (8.8-10.2); CHLORIDE 88 mmol/L (98-107); COSMO 263; POTASSIUM 2.1 mmol/L (3.5-5.1); SODIUM 134 mmol/L (136-145); TCO2 42 mmol/L (25-35)
[2016-08-01] MEDS: ALBUMIN 25% IV SCH (09:23)
[2016-08-01] MEDS ORDERED: KLOR-CON PO ONE (09:59)
[2016-08-01] MEDS ORDERED: POTASSIUM CHLORIDE 40 MEQ/SWI 100 ML IV ONE ×2 (09:59→17:49)
[2016-08-01] MEDS: CARAFATE LIQUID PO SCH ×4 (10:44→20:57)
[2016-08-01] MEDS: PROTONIX IV SCH ×2 (10:46→20:56)
[2016-08-01] MEDS: DEPACON 500 MG in NS 50 ML IV SCH (10:46)
[2016-08-01] MEDS: LASIX IV SCH (10:46)
[2016-08-01] MEDS: MIRALAX PO SCH ×2 (10:47→20:57)
[2016-08-01] MEDS: CARDIZEM CD PO SCH (10:55)
[2016-08-01] MEDS: SSD CREAM TOP SCH ×2 (10:55→20:58)
[2016-08-01] MEDS: MYCOSTATIN SUSP PO SCH ×4 (10:56→20:58)
[2016-08-01] MEDS: MAG-OX PO SCH ×2 (10:56→20:57)
[2016-08-01] MEDS: ICAR-C PO SCH ×2 (10:57→20:57)
[2016-08-01] MEDS: FOLIC ACID PO SCH (10:57)
[2016-08-01] MEDS: COLACE PO SCH (10:59)
[2016-08-01] MEDS: CENTRUM SILVER PO SCH (10:59)
--- NOTE | 2016-08-01 12:02 | PROGRESS NOTE ---
DATE: 08/01/2016 SUBJECTIVE: Follow up the patient with severe esophagitis and gastritis, anemia, dysphagia, and malnutrition, moderate. She is still having pain with swallowing but it is much improved. She denies having any fever or chills. Denies having any nausea, vomiting, or diarrhea. OBJECTIVE: Vital Signs: Blood pressure 133/65. Pulse of 74. Respirations 20. Temperature 98.2 degrees. Sat 100% on 2 L. General Appearance: Thin, white female in no acute distress. HEENT: Anicteric. Clear conjunctivae. Oral cavity is raw. Neck: Supple. No JVD. No bruit. Cardiovascular: S1, S2. Normal rate and rhythm. No murmur, rubs, or gallops. Pulmonary: Clear to auscultation bilaterally. GI: Soft. Nontender, nondistended. Normoactive bowel sounds. Musculoskeletal: No clubbing, cyanosis, or edema. LABORATORY DATA: White count 7.24. Hemoglobin 10.5. Hematocrit 30.2. Platelets 137,000. Chemistry: Sodium 134, potassium 2.1, chloride 88, bicarb 42, BUN 2, creatinine 0.4, glucose of 81, albumin 3.3. Microbiology showed some yeast in his urine. ASSESSMENT AND PLAN: This is a 66-year-old white female with a history of stroke admitted for dysphagia. 1. Dysphagia. The patient was found to have severe esophagitis and gastritis. We have started the patient on Protonix and Carafate. Also added nystatin swish and swallow and Diflucan IV for the next 7 days. We will continue mechanical soft diet. Encourage p.o. intake. Albumin is adequate. The patient has a mild protein calorie deficiency. 2. Hypokalemia. We will continue to treat her potassium. When we get her electrolytes stabilized, we will consider to get her to a rehab or home. 3. Hypertension. We will continue clonidine and diltiazem. 4. Deep vein thrombosis prophylaxis. The patient is on SCDs for now. CODE STATUS: The patient is a full code.
[2016-08-01] MEDS ORDERED: NS 500 ML ONE (12:28)
[2016-08-01] MEDS: SODIUM CHLORIDE 0.9% INJ SCH (20:56)
[2016-08-01] MEDS: DIFLUCAN 200 MG/NS 100 ML IV SCH (22:24)
[2016-08-01] MEDS: CATAPRES-TTS-1 TD SCH (23:48)
[2016-08-02] MEDS: ZOFRAN IV PRN ×2 (02:34→06:18)
[2016-08-02] MEDS: CARAFATE LIQUID PO SCH ×4 (06:00→22:43)
[2016-08-02] MEDS: SYNTHROID IV SCH (06:00)
[2016-08-02] MEDS: SODIUM CHLORIDE 0.9% INJ PRN (06:01)
[2016-08-02 06:32] LABS: HEMATOCRIT 30.5 % (37.0-47.0); HEMOGLOBIN 10.3 g/dL (12.0-16.0); MCH 30.6 PG (27-31); MCHC 33.8 g/dL (33-37); MCV 90.5 FL (81-99); MPV 10.2 FL (7.4-10.4); RBC 3.37 XMIL (4.2-5.4)
[2016-08-02] MEDS ORDERED: SODIUM CHLORIDE 0.9% INJ PRN (06:56)
[2016-08-02] MEDS: LASIX IV SCH (09:18)
[2016-08-02] MEDS: PROTONIX IV SCH ×2 (09:18→22:41)
[2016-08-02] MEDS: MIRALAX PO SCH ×2 (09:18→22:42)
[2016-08-02] MEDS: DEPACON 500 MG in NS 50 ML IV SCH (09:18)
[2016-08-02] MEDS: CARDIZEM CD PO SCH (09:18)
[2016-08-02] MEDS: MYCOSTATIN SUSP PO SCH ×4 (09:41→22:42)
[2016-08-02] MEDS: CENTRUM SILVER PO SCH (09:51)
[2016-08-02] MEDS: MAG-OX PO SCH ×2 (09:52→22:43)
[2016-08-02] MEDS: ICAR-C PO SCH ×2 (09:52→22:43)
[2016-08-02] MEDS: COLACE PO SCH (09:53)
[2016-08-02] MEDS: FOLIC ACID PO SCH (09:53)
[2016-08-02] MEDS: SSD CREAM TOP SCH ×2 (13:01→22:42)
--- NOTE | 2016-08-02 14:08 | PROGRESS NOTE ---
DATE: 08/02/2016 SUBJECTIVE: The patient is feeling a little better today. Still having pain when she swallows but able to eat a little more each day. She stated she takes all of her Ensure. No fever. No chills. No nausea, vomiting, or diarrhea. OBJECTIVE: Vital Signs: Blood pressure 138/71, pulse of 74, respirations 19, temperature 98.2 degrees, saturation 100% on 2 L. General Appearance: Well-developed, thin white female in no acute distress. HEENT: Anicteric. Clear conjunctivae. Oral cavity is raw. Neck: Supple. No JVD. No bruit. Cardiovascular: S1, S2. Normal rate and rhythm. No murmur, rubs, or gallops. Pulmonary: Clear to auscultation bilaterally. GI: Soft, nontender, nondistended. Normoactive bowel sounds. Musculoskeletal: No clubbing, cyanosis, or edema. LABORATORY: Reviewed. ASSESSMENT AND PLAN: This is a 66-year-old white female admitted to the hospital for dysphagia. 1. Dysphasia status post esophagogastroduodenoscopy with dilation. Found to have significant esophagitis and gastritis. We started the patient on Diflucan IV and swish and swallow. She seems to be doing better. She is able to swallow her food a bit easier. Encourage p.o. intake. If the patient eats more than 50 to 75% of her meal she can go home. She wants to go home with a sitter. 2. Hypokalemia. We will continue to replete her potassium. Check her renal function tomorrow. 3. Hypertension. Will continue clonidine and diltiazem. 4. Deep vein thrombosis prophylaxis. The patient is on SCDs. 5. Will consult physical therapy to work with the patient. 6. Code status. The patient is a full code. Her son is her surrogate decision maker.
[2016-08-02] MEDS: PHENERGAN IV PRN (14:32)
--- NOTE | 2016-08-02 15:01 | PROGRESS NOTE ---
DATE: 08/02/2016 SUBJECTIVE: The patient is currently resting in bed. Her friend is sitting at bedside. The patient continues to have decreased p.o. intake. She is scared of eating, as she thinks things are hurting in her mouth. She was able the tolerate liquids per the nursing staff. She does have severe esophagitis and esophageal stricture, which was dilated by Dr. Loya a few days ago. OBJECTIVE: Vital Signs: Temperature 98.2 degrees, pulse rate of 74, respiratory rate 19, blood pressure 132/71, saturating 100% on 2 liters nasal cannula. General Appearance: Thinly built, lying in bed, in no acute distress. HEENT: Pale conjunctivae. No icterus. Neck: Supple. Abdomen: Soft, nontender, nondistended. Bowel sounds. No guarding and no rebound. Extremities: No cyanosis, clubbing. She has heal protectors. Neurologic: She is awake and alert and answers simple questions. LABORATORIES: Her hemoglobin and hematocrit are 10.3 and 30.5, white count of 8.5, platelet count of 139,000. Her sodium is 135, potassium 2.1, which was yesterday ASSESSMENT AND PLAN: 1. Dysphagia secondary to severe esophagitis and esophageal stricture, status post dilation. We will encourage the patient to take Ensure clear 3 times a day and Glucerna 3 times a day. Nutrition is on board. She is will continue on Protonix, Carafate, Diflucan, and nystatin as per the primary team. 2. Anemia, stable. She has been on iron supplementation. 3. Status post cerebrovascular accident, stable. Continue to watch. 4. I encouraged the patient to eat orally. If she continues to have decreased oral intake, we may have to consider other modes of nutrition like, peripheral parenteral nutrition, total parenteral nutrition, or percutaneous endoscopic gastrostomy tube. Please call us with any questions.
[2016-08-02] MEDS: SODIUM CHLORIDE 0.9% INJ SCH (22:41)
[2016-08-03] MEDS: PHENERGAN IV PRN (00:30)
[2016-08-03] MEDS: DIFLUCAN 200 MG/NS 100 ML IV SCH ×2 (01:17→22:44)
[2016-08-03] MEDS ORDERED: PHENERGAN IV ONE (05:19)
[2016-08-03] MEDS ORDERED: SODIUM CHLORIDE 0.9% INJ ONE (05:19)
[2016-08-03] MEDS: CARAFATE LIQUID PO SCH ×4 (07:00→22:58)
[2016-08-03] MEDS: SYNTHROID IV SCH (07:25)
[2016-08-03 07:55] LABS: MANUAL DIFF NEEDED? NO
[2016-08-03 08:00] LABS: BASO% 0.5 % (0.0-0.8); EOS# 0.04 X1000 (0.0-0.7); EOS% 0.4 % (0.0-10.0); HEMATOCRIT 31.1 % (37.0-47.0); HEMOGLOBIN 10.4 g/dL (12.0-16.0); IMM GRAN# 0.02 X1000 (0.0-0.04); IMM GRAN% 0.2 % (0.0-0.5); LYMPH# 1.58 X1000 (1.2-3.4); LYMPH% 16.7 % (20.5-51.1); MCH 29.8 PG (27-31); MCHC 33.4 g/dL (33-37); MCV 89.1 FL (81-99); MONO# 1.14 X1000 (0.11-0.59); MONO% 12.1 % (1.7-9.3); MPV 11.8 FL (7.4-10.4); NEUT% 70.1 % (42.2-75.2); PLT 154 X1000 (130-400); RBC 3.49 XMIL (4.2-5.4)
[2016-08-03 09:13] LABS: AGAP 10; BUN 8 mg/dL (8-22); CALCIUM 10.4 mg/dL (8.8-10.2); CHLORIDE 89 mmol/L (98-107); COSMO 270; SODIUM 137 mmol/L (136-145); TCO2 38 mmol/L (25-35)
[2016-08-03 09:19] LABS: POTASSIUM 2.2 mmol/L (3.5-5.1)
[2016-08-03] MEDS ORDERED: POTASSIUM CHLORIDE 40 MEQ/SWI 100 ML IV ONE (10:23)
--- NOTE | 2016-08-03 10:55 | Diag Imaging Result Document ---
PROCEDURE NAME: FLAT/UPRIGHT ABD/1 VIEW CHEST - 08/03/2016 FLAT AND UPRIGHT AND CHEST, THREE VIEWS: FINDINGS: The lungs are well expanded. There is a right-sided PICC line with the tip overlying the right atrium. Small infiltrate or pleural effusion on the left. No free air beneath the diaphragm. The bowel loops are not dilated. No organomegaly. Surgical clips in the mid right abdomen consistent with cholecystectomy. IMPRESSION: No acute abdominal abnormality. I believe there is a small left pleural effusion.
[2016-08-03] MEDS: DEPACON 500 MG in NS 50 ML IV SCH (11:12)
[2016-08-03] MEDS: PROTONIX IV SCH ×2 (11:14→22:58)
[2016-08-03] MEDS: LASIX IV SCH (11:14)
[2016-08-03] MEDS: MYCOSTATIN SUSP PO SCH ×4 (11:14→22:59)
[2016-08-03] MEDS: CARDIZEM CD PO SCH (11:14)
[2016-08-03] MEDS: COLACE PO SCH (11:17)
[2016-08-03] MEDS: MAG-OX PO SCH ×2 (11:17→22:58)
[2016-08-03] MEDS: CENTRUM SILVER PO SCH (11:17)
[2016-08-03] MEDS: ICAR-C PO SCH ×2 (11:17→22:58)
[2016-08-03] MEDS: FOLIC ACID PO SCH (11:17)
[2016-08-03] MEDS: MIRALAX PO SCH ×2 (11:18→22:58)
[2016-08-03] MEDS: SSD CREAM TOP SCH ×2 (11:18→22:59)
[2016-08-03] MEDS ORDERED: PHENERGAN IV PRN (11:30)
--- NOTE | 2016-08-03 11:46 | PROGRESS NOTE ---
DATE: 08/03/2016 SUBJECTIVE: The patient is currently resting in bed. Her family is at bedside. The patient is still refusing to eat. She had abdominal x-ray done which showed no acute abnormality and a possibility of small left-sided pleural effusion. OBJECTIVE: Vitals: Temperature of 98 degrees, pulse rate of 76, respiratory rate 18, blood pressure 130/71, satting 100%. General appearance: She is well-developed, moderately nourished, lying in bed in no acute distress. HEENT: Dry oral mucosa. Positive pallor. No icterus. Neck: Supple. Abdomen: Soft, nontender, nondistended. Bowel sounds are hyperactive. No guarding. Extremities: No cyanosis, no clubbing. Neurologic status: Left-sided weakness from prior CVA. LABS: Hemoglobin and hematocrit is 10.4 and 31.1. Sodium 137, potassium is 2.2 , chloride of 89, bicarbonate 30, anion gap 10, BUN of 8, creatinine 0.5, glucose of 66, calcium is 10.4. IMPRESSION AND PLAN: 1. Decreased oral intake. Continues to complain of dysphagia and mild pain and trouble swallowing. I discussed in detail with the patient and family at bedside since the patient has poor oral intake and has been in catabolic state for a few days, we discussed the options of putting in PEG tube likely tomorrow if she continues to have poor oral intake. NGT could be a difficult because of underlying esophageal stricture. Risks benefits indications and alternatives to PEG tube discussed with patient and family at bedside. 2. Severe esophagitis and esophageal stricture. In this regard, she will continue on Protonix twice daily and Carafate and fluconazole. 3. Status post cerebrovascular accident with residual left sided weakness. It may be contributing to her dysphagia symptoms. 4. Anemia, currently stable. for now. 5. I will start on intravenous Clinimix today. Discussed with Nutrition team. 6. Further orders pending hospitalist. [facility]
--- NOTE | 2016-08-03 13:36 | PROGRESS NOTE ---
DATE: 08/03/2016 SUBJECTIVE: The patient is doing about the same. She refused to eat. Her POA was in the room. He is okay for us to put down the NG tube. OBJECTIVE: Vital Signs: Blood pressure 130/71, pulse of 76, respiration 18, temperature of 98 degrees, satting 100% on 2 L nasal cannula. General Appearance: Thin, white female in no acute distress. Awake, alert and oriented x2. HEENT: Anicteric sclerae. Clear conjunctivae. Oral cavity and myofascia very raw. Cardiovascular: S1, S2. Normal rate and rhythm. No murmur, rubs, or gallops. Pulmonary: Clear to auscultation bilaterally. GI: Soft, nontender, nondistended. Normoactive bowel sounds. Musculoskeletal: No clubbing, cyanosis, or edema. LABORATORY: White count 9.46, hemoglobin 10.4, hematocrit of 37.1, platelets of 154. Chemistry: Sodium 137, potassium 2.2, chloride 89, bicarbonate 38, BUN 8, creatinine 0.5, glucose 66. ASSESSMENT AND PLAN: This is a 66-year-old white female admitted to the hospital for dysphagia. 1. Dysphagia. The patient has significant esophagitis and gastritis. She refused to eat. Gastrointestinal was following. The patient agreed for the nasogastric tube placement. Power of real estate attorney also agreed. We will order nasogastric tube. 2. Severe hypokalemia. Will replete the potassium. 3. Hypertension. Will continue clonidine and diltiazem. 4. Deep vein thrombosis prophylaxis. Will put the patient on sequential compression devices for now. 5. Protein calorie deficiency. We will place the nasogastric tube, and we will start the patient on tube feeds. 6. Code status: The patient is [id number] per her power of real estate attorney. She is not awake, alert and oriented enough to make her own decisions.
[2016-08-03] MEDS: CLINIMIX E 4.25%-5% SOLUTION 1,000 ML IV SCH (15:52)
--- NOTE | 2016-08-03 16:39 | Diag Imaging Result Document ---
PROCEDURE NAME: CHEST/ABD TUBE PLACEMENT - 08/03/2016 PORTABLE CHEST X-RAY AT 1605 HOURS: COMPARISON: 0928 hours. FINDINGS: There is a nasogastric tube with the tip in good position in the stomach. Stable right PICC line. Stable trace left pleural effusion. IMPRESSION: Good nasogastric tube placement.
[2016-08-03] MEDS: SODIUM CHLORIDE 0.9% INJ SCH (22:58)
[2016-08-04 05:06] LABS: BASO% 0.2 % (0.0-0.8); HEMATOCRIT 31.3 % (37.0-47.0); HEMOGLOBIN 10.3 g/dL (12.0-16.0); LYMPH# 0.63 X1000 (1.2-3.4); MANUAL DIFF NEEDED? YES; MCH 29.9 PG (27-31); MCHC 32.9 g/dL (33-37); MCV 90.7 FL (81-99); MONO% 6.6 % (1.7-9.3); MPV 11.6 FL (7.4-10.4); NEUT% 86.2 % (42.2-75.2); PLT 143 X1000 (130-400); RBC 3.45 XMIL (4.2-5.4)
[2016-08-04 05:18] LABS: AGAP 8; ALBUMIN 3.2 g/dL (3.5-5.0); ALKALINE PHOSPHATASE 51 U/L (32-104); BUN 11 mg/dL (8-22); CALCIUM 10.5 mg/dL (8.8-10.2); CHLORIDE 88 mmol/L (98-107); COSMO 281; GOT 12 U/L (10-30); GPT < 5 U/L (10-36); MAGNESIUM 1.8 mg/dL (1.5-2.7); POTASSIUM 3.9 mmol/L (3.5-5.1); SODIUM 132 mmol/L (136-145); TCO2 36 mmol/L (25-35); TOTAL BILIRUBIN 0.92 mg/dL (0.20-1.00); TOTAL PROTEIN 5.4 g/dL (6.3-8.3)
[2016-08-04] MEDS: CLINIMIX E 4.25%-5% SOLUTION 1,000 ML IV SCH ×2 (05:30→23:22)
[2016-08-04] MEDS: SYNTHROID IV SCH (06:38)
[2016-08-04] MEDS: SODIUM CHLORIDE 0.9% INJ PRN (06:38)
[2016-08-04] MEDS: CARAFATE LIQUID PO SCH ×3 (06:42→17:01)
[2016-08-04 07:12] LABS: LYMPHS 10 % (21-51); MONO 2 % (1-9)
[2016-08-04] MEDS: SSD CREAM TOP SCH ×2 (08:46→23:28)
[2016-08-04] MEDS: PROTONIX IV SCH ×2 (08:46→23:26)
[2016-08-04] MEDS: CARDIZEM CD PO SCH (08:46)
[2016-08-04] MEDS: MAG-OX PO SCH (08:47)
[2016-08-04] MEDS: MIRALAX PO SCH (08:47)
[2016-08-04] MEDS: MYCOSTATIN SUSP PO SCH ×3 (08:47→17:03)
[2016-08-04] MEDS: LASIX IV SCH (08:48)
[2016-08-04] MEDS: ICAR-C PO SCH (08:48)
[2016-08-04] MEDS: FOLIC ACID PO SCH (08:49)
[2016-08-04] MEDS: DEPACON 500 MG in NS 50 ML IV SCH (08:49)
[2016-08-04] MEDS: COLACE PO SCH (08:49)
[2016-08-04] MEDS: CENTRUM SILVER PO SCH (08:50)
--- NOTE | 2016-08-04 12:10 | PROGRESS NOTE ---
DATE: 08/04/2016 SUBJECTIVE: The patient is doing about the same. She could not tolerate food yesterday. OBJECTIVE: Vital signs: Blood pressure is 144/52, pulse 46, respirations 20, temperature 97.4, saturation is 100% on 2 L nasal cannula. General appearance: A thin white female, cachectic looking, but in no acute distress. NG tube is in place. HEENT: Still oral cavity is very raw. Neck: Supple. No JVD. No bruit. Cardiovascular: S1 and S2. Normal rate, regular rhythm. No murmurs, rubs or gallops. Pulmonary: Clear to auscultation bilaterally. GI: Soft, nontender and nondistended. Normoactive bowel sounds. Musculoskeletal: No cyanosis, clubbing or edema. DIAGNOSTIC DATA: White count of 9.05, hemoglobin 10.3, hematocrit 31.3, platelets 145. Chemistry shows sodium 132, potassium 3.9, chloride 88, bicarb 36, BUN was 11, creatinine 0.5, glucose 397. ASSESSMENT AND PLAN: This is a 66-year-old white female admitted to the hospital for dysphagia. 1. Dysphagia, status post EGD with esophageal dilation. Found to have significant esophagitis and gastritis. Unable to eat due to pain. She could not tolerate NG tube feeding. GI is planning to do the PEG today. 2. Severe hypokalemia, resolved. 3. Hypertension. We will continue clonidine and diltiazem. 4. DVT prophylaxis. The patient is on SCD for now. 5. Protein calorie deficiency. We will continue NG tube. 6. Code status. The patient is DNR. 7. Overall prognosis is poor. Her POA was informed of her prognosis, but they still want the PEG tube placed.
[2016-08-04] MEDS ORDERED: CARDIZEM IV ONE (13:15)
[2016-08-04] MEDS ORDERED: DIPRIVAN 1% ONE (13:33)
[2016-08-04] MEDS ORDERED: MYLICON DROPS (DOSE) MISC ONE (13:41)
[2016-08-04] MEDS ORDERED: XYLOCAINE-MPF 2% ONE (14:05)
[2016-08-04] MEDS: ZOFRAN IV PRN (17:31)
[2016-08-04] MEDS: MIRALAX PEG SCH (23:24)
[2016-08-04] MEDS: MYCOSTATIN SUSP PEG SCH (23:25)
[2016-08-04] MEDS: MAG-OX PEG SCH (23:26)
[2016-08-04] MEDS: SODIUM CHLORIDE 0.9% INJ SCH (23:26)
[2016-08-04] MEDS: CARAFATE LIQUID PEG SCH (23:26)
[2016-08-04] MEDS: ICAR-C PEG SCH (23:26)
[2016-08-04] MEDS: DIFLUCAN 200 MG/NS 100 ML IV SCH (23:27)
[2016-08-05] MEDS: TYLENOL LIQUID PEG PRN (02:35)
[2016-08-05 03:57] LABS: AGAP 10; BUN 21 mg/dL (8-22); CALCIUM 11.5 mg/dL (8.8-10.2); CHLORIDE 92 mmol/L (98-107); COSMO 282; MAGNESIUM 1.7 mg/dL (1.5-2.7); SODIUM 138 mmol/L (136-145); TCO2 36 mmol/L (25-35)
[2016-08-05 03:58] LABS: POTASSIUM 2.3 mmol/L (3.5-5.1)
[2016-08-05] MEDS ORDERED: POTASSIUM CHLORIDE 40 MEQ/SWI 100 ML IV ONE (04:20)
[2016-08-05] MEDS ORDERED: POTASSIUM CHLORIDE 20% LIQUID PEG ONE ×2 (04:23→11:06)
[2016-08-05] MEDS: CARAFATE LIQUID PEG SCH ×4 (06:42→20:13)
[2016-08-05] MEDS: SYNTHROID IV SCH (06:42)
[2016-08-05] MEDS: SODIUM CHLORIDE 0.9% INJ PRN (06:44)
[2016-08-05] MEDS: CARDIZEM CD PO SCH (11:50)
[2016-08-05] MEDS: COLACE LIQUID PEG SCH (11:50)
[2016-08-05] MEDS: PROTONIX IV SCH ×2 (11:50→20:14)
[2016-08-05] MEDS: FOLIC ACID PEG SCH (11:51)
[2016-08-05] MEDS: MAG-OX PEG SCH ×2 (11:51→20:13)
[2016-08-05] MEDS: SODIUM CHLORIDE 0.9% INJ SCH ×2 (11:51→20:14)
[2016-08-05] MEDS: ELDERTONIC PEG SCH (11:51)
[2016-08-05] MEDS: LASIX IV SCH (11:51)
[2016-08-05] MEDS: SSD CREAM TOP SCH ×2 (11:52→20:14)
[2016-08-05] MEDS: MIRALAX PEG SCH ×2 (11:52→20:14)
[2016-08-05] MEDS: MYCOSTATIN SUSP PEG SCH ×4 (11:52→20:14)
[2016-08-05] MEDS: ICAR-C PEG SCH ×2 (11:52→20:14)
--- NOTE | 2016-08-05 14:01 | PROGRESS NOTE ---
DATE: 08/05/2016 SUBJECTIVE: The patient is hungry. She wants to eat. No acute event reported by the overnight staff. OBJECTIVE: Her blood pressure 159/91, pulse of 98, respirations 20, temperature 98.7 degrees. Saturation 100% on 2 L. General appearance: Cachectic white female in no acute distress. HEENT: Anicteric. Clear conjunctiva. Her oral count is still the same, very raw looking. Cardiovascular: S1, S2. Normal rate and rhythm. No murmur, rubs, or gallops. Pulmonary: Clear to auscultation bilaterally. Gastrointestinal: Soft, nontender, nondistended. Normoactive bowel sounds. Musculoskeletal: No clubbing, cyanosis, or edema. LABORATORY: Her potassium is 5.0. ASSESSMENT AND PLAN: This is a 66-year-old white female admitted to the hospital for dysplasia. 1. Dysphasia status post EGD and esophageal dilation. The patient had a PEG tube placed on the 08/04/2016. We initiated a tube feed with Glucerna today. The patient can have clear liquid diet if she tolerates it. 2. Severe hypokalemia resolved. 3. Hypertension. We will continue clonidine and diltiazem. 4. Deep vein thrombosis prophylaxis. Put the patient on SCDs. 5. Protein calorie deficiency moderate. Will continue clear liquid and we will start the patient on Glucerna 4 times a day. We will consult nutrition on Sunday for nutrition recommendation. CODE STATUS: The patient DNR level 1.
[2016-08-05] MEDS: DEPACON 500 MG in NS 50 ML IV SCH (14:23)
[2016-08-05] MEDS: CLINIMIX E 4.25%-5% SOLUTION 1,000 ML IV SCH (14:24)
--- NOTE | 2016-08-05 21:13 | PROGRESS NOTE ---
DATE: 08/05/2016 SUBJECTIVE: Patient resting in bed. She is drowsy today. She has status post PEG tube placement on 08/04/[address] Loya. They will be starting the feeding tube soon. OBJECTIVE: Vital signs: Temperature of 98.8 degrees, pulse rate of 92, respiratory 18, blood pressure 144/66, saturating 96% on 2 L nasal cannula. General Appearance: Thinly built lying in bed in no acute distress. HEENT: Pale conjunctivae. No icterus. Drowsy. Neck: Is supple. Abdomen: PEG tube in place. Mild old blood noted around the PEG tube site. Bowel sounds are present. No guarding or rebound. Bowel sounds are hypoactive and PEG tube site dressing noted. No drainage around the PEG tube site. Extremities: Lack of muscle in lower extremities and heel protectors noted. Neuro: She is currently drowsy today. IMPRESSION AND PLAN: 1. Dysphagia chronic poor oral intake, malnutrition status post EGD with percutaneous endoscopic gastrostomy tube placement 08/04/[address] Loya. Will call Nutrition consultation for PEG tube feedings. 2. Abdominal binder all the time. 3. Aspiration precaution. 4. Severe esophagitis. Patient continue on Protonix twice a day and sucralfate as before. 5. Altered mental status. She is status post cerebrovascular accident in the past. I will defer to the primary care team for further management. I discussed above with the patient's nurse and all questions answered. [facility]
[2016-08-05 23:41] LABS: HEMATOCRIT 30.5 % (37.0-47.0); HEMOGLOBIN 10.3 g/dL (12.0-16.0); MCH 30.6 PG (27-31); MCHC 33.8 g/dL (33-37); MCV 90.5 FL (81-99); MPV 11.7 FL (7.4-10.4); RBC 3.37 XMIL (4.2-5.4)
[2016-08-05 23:47] LABS: INR 1.32; PTT 31.8 Seconds (22.0-36.0)
[2016-08-05 23:59] LABS: AGAP 7; ALBUMIN 3.3 g/dL (3.5-5.0); ALKALINE PHOSPHATASE 88 U/L (32-104); BUN 22 mg/dL (8-22); CHLORIDE 93 mmol/L (98-107); COSMO 276; GOT 29 U/L (10-30); GPT 7 U/L (10-36); POTASSIUM 4.4 mmol/L (3.5-5.1); SODIUM 135 mmol/L (136-145); TCO2 35 mmol/L (25-35); TOTAL BILIRUBIN 0.85 mg/dL (0.20-1.00)
[2016-08-06] LABS: CALCIUM 12.3 mg/dL (8.8-10.2)
[2016-08-06] MEDS: DIFLUCAN 200 MG/NS 100 ML IV SCH (03:33)
[2016-08-06] MEDS: CLINIMIX E 4.25%-5% SOLUTION 1,000 ML IV SCH ×3 (03:34→18:58)
[2016-08-06 06:14] LABS: MANUAL DIFF NEEDED? NO
[2016-08-06 06:21] LABS: BASO% 0.3 % (0.0-0.8); HEMATOCRIT 30.5 % (37.0-47.0); HEMOGLOBIN 9.7 g/dL (12.0-16.0); IMM GRAN# 0.02 X1000 (0.0-0.04); IMM GRAN% 0.2 % (0.0-0.5); LYMPH# 1.19 X1000 (1.2-3.4); MCH 29.5 PG (27-31); MCHC 31.8 g/dL (33-37); MCV 92.7 FL (81-99); MONO# 1.63 X1000 (0.11-0.59); MPV 12.7 FL (7.4-10.4); NEUT% 73.5 % (42.2-75.2); PLT 142 X1000 (130-400); RBC 3.29 XMIL (4.2-5.4)
[2016-08-06] MEDS: SYNTHROID IV SCH (06:25)
[2016-08-06] MEDS: CARAFATE LIQUID PEG SCH ×4 (06:25→23:49)
--- NOTE | 2016-08-06 08:11 | Diag Imaging Result Document ---
PROCEDURE NAME: HEAD W/O CONTRAST - 08/05/2016 CT OF THE HEAD WITHOUT CONTRAST: FINDINGS: There are calcifications in the internal carotid arteries bilaterally. There is no evidence of mass effect, bleed, or abnormal extraaxial fluid collection. The paranasal sinuses are clear. There is no evidence of acute bony disease. There is an effusion in the left mastoid air cells. IMPRESSION: Left mastoid effusion. No evidence of acute intracranial disease.
[2016-08-06] MEDS: PROTONIX IV SCH ×2 (10:02→23:48)
[2016-08-06] MEDS: MYCOSTATIN SUSP PEG SCH ×4 (10:02→23:50)
[2016-08-06] MEDS: SODIUM CHLORIDE 0.9% INJ SCH ×2 (10:02→23:49)
[2016-08-06] MEDS: COLACE LIQUID PEG SCH (10:03)
[2016-08-06] MEDS: FOLIC ACID PEG SCH (10:03)
[2016-08-06] MEDS: CARDIZEM CD PO SCH (10:03)
[2016-08-06] MEDS: MIRALAX PEG SCH ×2 (10:03→23:50)
[2016-08-06] MEDS: ICAR-C PEG SCH ×2 (10:03→23:48)
[2016-08-06] MEDS: LASIX IV SCH ×2 (10:03→23:48)
[2016-08-06] MEDS: SSD CREAM TOP SCH ×2 (10:03→23:50)
[2016-08-06] MEDS: ELDERTONIC PEG SCH (10:03)
[2016-08-06] MEDS: MAG-OX PEG SCH ×2 (10:03→23:48)
[2016-08-06] MEDS ORDERED: HALDOL IM PRN (11:09)
[2016-08-06] MEDS: DEPACON 500 MG in NS 50 ML IV SCH (13:08)
--- NOTE | 2016-08-06 13:27 | PROGRESS NOTE ---
DATE: 08/06/2016 SUBJECTIVE: The patient was a little confused overnight. She started hollering for the 1st time. OBJECTIVE: Vital signs: Blood pressure 149/94, pulse ranging from 56-115, respirations about 10- 20, temperature 97.6 degrees, saturation of 100% on 2 L nasal cannula. General appearance: White female, confused. HEENT: Anicteric. Clear conjunctivae. Oral cavity is still very raw and her lips have some old blood. Neck: Supple. No JVD. No bruit. Cardiovascular: S1 and S2. Normal rate and rhythm. No murmur, rubs, or gallops. Pulmonary: Clear to auscultation bilaterally. GI: Soft, nontender, nondistended. Normoactive bowel sounds Musculoskeletal: No clubbing, cyanosis, or edema. LABORATORY: Her sodium is 135, potassium 4.4, chloride 93, bicarb 34, BUN 22, creatinine 0.5, glucose 136. Her calcium is elevated at 12.3 today. CAT scan of brain was negative. Hematology: White count 10.8, hemoglobin 9.7, hematocrit 30.5, platelets 142,000. ASSESSMENT AND PLAN: This is a 66-year-old white female admitted to the hospital for dysphagia. 1. Dysphagia, status post esophagogastroduodenoscopy and esophageal dilation. The patient has severe esophagitis and gastritis. PEG tube was placed on the August 04, 2015. Tube feeds are going at 10 mL/h of Jevity. 2. Hypercalcemia. I am not sure what the cause. Will check her intact parathyroid hormone. Start the patient on IV fluid and Lasix and will recheck her calcium level tomorrow. We will give the patient Haldol p.r.n. for agitation. CAT scan was reviewed. 3. Severe protein calorie deficiency. We will continue tube feeds. 4. Deep vein thrombosis prophylaxis. Put the patient on Lovenox for now. 5. Code status. Patient is Do Not Resuscitate level 1. [facility]
[2016-08-06] MEDS: NS 1,000 ML IV SCH ×2 (16:48→23:48)
--- NOTE | 2016-08-06 19:27 | PROGRESS NOTE ---
DATE: 08/06/2016 SUBJECTIVE: The patient is currently confused and sleepy. She has a prior history of CVA. Primary care team is working to help manage her recent change in mental status. I think she would benefit from neurology consultation. OBJECTIVE: Vital signs: Temperature 98.2, pulse rate 145, respiratory rate 14 , blood pressure 157/100, saturating 100% on 2 L nasal cannula. General: This is a thin female lying in bed, currently sleepy. HEENT: Oral mucosal lining dry, erythematous lips suggesting cheilitis and mucositis. Neck: Supple. Abdomen: PEG tube in place. Old blood around the PEG tube site noted. Bowel sounds are present. No guarding. Extremities: No cyanosis or clubbing. Contracture of lower extremities. Heel protectors noted. Neurologic: She responds to her name but she is very drowsy and has some altered mental status. LABORATORY DATA: White count 10.8, hemoglobin and hematocrit 9.7 and 30.4, platelet count 142, MCV 92.7. Blood glucose 107. Calcium was very high yesterday at 12.3. The primary care team is working on that. This could have a bearing on her change in mental status. INR 1.32 on 08/05/2016. She has been started on tube feeds. She is tolerating well so far. IMPRESSION AND PLAN: 1. Dysphagia status post PEG tube placement and esophageal dilation. She was noted to have severe esophagitis. She does have mucositis in her oral cavity as well. She has been on PEG tube feeds. Will slowly advance. Will keep her on aspiration precautions. Will continue on iron, C, multivitamin, and PPIs, sucralfate, nystatin, and fluconazole. Recommend daily oral hygiene. 2. Hypercalcemia. Currently being worked up by primary care team. 3. Change in mental status. Per the primary care team. May benefit from neurology consultation. 4. Anemia. Continue to watch for now. 5. Plan explained to the patient's family and R.N. and all questions answered. [facility]
[2016-08-07] MEDS: CLINIMIX E 4.25%-5% SOLUTION 1,000 ML IV SCH ×2 (03:38→11:17)
[2016-08-07] MEDS: DIFLUCAN 200 MG/NS 100 ML IV SCH (03:39)
[2016-08-07] MEDS: SYNTHROID IV SCH (06:00)
[2016-08-07 06:25] LABS: MANUAL DIFF NEEDED? NO
[2016-08-07 06:27] LABS: BASO% 0.8 % (0.0-0.8); EOS# 0.01 X1000 (0.0-0.7); EOS% 0.2 % (0.0-10.0); HEMATOCRIT 28.2 % (37.0-47.0); IMM GRAN# 0.04 X1000 (0.0-0.04); IMM GRAN% 0.6 % (0.0-0.5); LYMPH# 1.01 X1000 (1.2-3.4); LYMPH% 15.3 % (20.5-51.1); MCH 29.8 PG (27-31); MCHC 31.9 g/dL (33-37); MCV 93.4 FL (81-99); MONO# 1.26 X1000 (0.11-0.59); MONO% 19.1 % (1.7-9.3); MPV 12.5 FL (7.4-10.4); PLT 150 X1000 (130-400); RBC 3.02 XMIL (4.2-5.4)
[2016-08-07] MEDS: CARAFATE LIQUID PEG SCH ×4 (07:16→22:03)
--- NOTE | 2016-08-07 07:57 | EKG Report ---
Test Performed on : 08/05/2016 11:22:08 PM Test Reason : done by RT/No order in [employer] Blood Pressure : / mmHG Vent. Rate : 096 BPM Atrial Rate : 096 BPM P-R Int : 158 ms QRS Dur : 064 ms QT Int : 442 ms P-R-T Axes : 041 -04 060 degrees QTc Int : 558 ms Sinus rhythm. with frequent premature ventricular complexes. Nonspecific ST and T wave abnormality Prolonged QT Abnormal ECG When compared with ECG of 01-MAY-2016 08:19, premature ventricular complexes. are now present Confirmed by Nilton Carmichael DO ([id number]) on 08/11/2016 1:50:39 PM
[2016-08-07 08:26] LABS: MAGNESIUM 2.1 mg/dL (1.5-2.7)
[2016-08-07 08:40] LABS: AGAP 9; ALBUMIN 2.9 g/dL (3.5-5.0); ALKALINE PHOSPHATASE 114 U/L (32-104); BUN 27 mg/dL (8-22); CALCIUM 11.9 mg/dL (8.8-10.2); CHLORIDE 95 mmol/L (98-107); COSMO 281; GOT 37 U/L (10-30); GPT 9 U/L (10-36); POTASSIUM 3.5 mmol/L (3.5-5.1); SODIUM 138 mmol/L (136-145); TCO2 34 mmol/L (25-35); TOTAL BILIRUBIN 0.77 mg/dL (0.20-1.00); TOTAL PROTEIN 5.5 g/dL (6.3-8.3)
[2016-08-07] MEDS: MIRALAX PEG SCH ×2 (11:17→22:04)
[2016-08-07] MEDS: COLACE LIQUID PEG SCH (11:17)
[2016-08-07] MEDS: SSD CREAM TOP SCH ×2 (11:17→22:04)
[2016-08-07] MEDS: ICAR-C PEG SCH ×2 (11:17→22:02)
[2016-08-07] MEDS: CARDIZEM CD PO SCH (11:18)
[2016-08-07] MEDS: FOLIC ACID PEG SCH (11:18)
[2016-08-07] MEDS: MAG-OX PEG SCH ×2 (11:18→22:02)
[2016-08-07] MEDS: LASIX IV SCH ×2 (11:18→22:03)
[2016-08-07] MEDS: ELDERTONIC PEG SCH (11:19)
[2016-08-07] MEDS: DEPACON 500 MG in NS 50 ML IV SCH (11:19)
[2016-08-07] MEDS: NEUTRA-PHOS PEG SCH ×4 (11:20→22:03)
[2016-08-07] MEDS: MYCOSTATIN SUSP PEG SCH ×4 (11:20→22:04)
[2016-08-07] MEDS: PROTONIX IV SCH ×2 (11:20→22:03)
--- NOTE | 2016-08-07 11:49 | Diag Imaging Result Document ---
PROCEDURE NAME: HEAD W/O CONTRAST - 08/07/[address]: COMPARISON: 08/06/2016. FINDINGS: The ventricles and sulci are normal in size and contour. No intracranial mass or hemorrhage. Lamas-white matter attenuation is preserved. The skull is intact. There is stable mastoiditis on the left. The sinuses and middle ears are clear. IMPRESSION: No acute disease or change from prior.
--- NOTE | 2016-08-07 16:07 | EKG Report ---
Test Performed on : 08/07/2016 3:36:42 PM Test Reason : tachycardia Blood Pressure : / mmHG Vent. Rate : 144 BPM Atrial Rate : 144 BPM P-R Int : 112 ms QRS Dur : 058 ms QT Int : 346 ms P-R-T Axes : 027 013 112 degrees QTc Int : 535 ms Sinus tachycardia. with occasional premature ventricular complexes. Septal infarct , age undetermined T wave abnormality, consider lateral ischemia Abnormal ECG When compared with ECG of 05-AUG-2016 23:22, (Unconfirmed) Nonspecific T wave abnormality early precordial leads V1-V3 Confirmed by Nilton Carmichael DO ([id number]) on 08/11/2016 2:22:27 PM
--- NOTE | 2016-08-07 16:29 | PROGRESS NOTE ---
DATE: 08/07/2016 SUBJECTIVE: The patient is lethargic and confused. She is also tachycardic with heart rates in the 140s to 150s. The patient is unable to stay awake long enough to even try to take anything by mouth. OBJECTIVE: Vital Signs: Temperature 98.8 degrees, blood pressure 158/86, heart rate 152, respirations 20, O2 saturations 97% on 2 L nasal cannula. General: This is a chronically ill- appearing elderly female lying in bed in no acute distress. Head: Normocephalic, atraumatic. Heart: S1, S2. Normal. Tachycardic. Lungs: Clear to auscultation bilaterally. Abdomen: Positive bowel sounds. Soft, nontender, nondistended. Extremities: Trace pedal edema. No cyanosis. Neurologic: The patient is lethargic and confused. LABS: White blood cell count 7.6, hemoglobin 11, hematocrit 32, platelets 168, 000. INR 1.65. Sodium 137, potassium 3.5, BUN 27, creatinine 0.5, glucose 96, calcium 11.9, phosphorus 1.4, magnesium 2.1, AST 37, ALT 9, alkaline phosphatase 114, ammonia 61. A head CT shows no acute intracranial pathology. ASSESSMENT AND PLAN: 1. Metabolic encephalopathy. Multifactorial. The patient appears to possibly have primary hyperparathyroidism. Will order a parathyroid nuclear medicine scan and also check a urine calcium level. In the meantime, will continue with aggressive IV fluid hydration. Will check TSH and free T4. 2. Dysphagia status post percutaneous endoscopic gastrostomy tube. Continue with PEG tube feeds. 3. Hypercalcemia. This is most likely secondary to primary hyperparathyroidism. Will check a parathyroid nuclear medicine scan and urine calcium. The patient's intact PTH is elevated which would support this diagnosis. The head CT is unremarkable at this time. 4. Severe protein calorie malnutrition. Continue with tube feeds. 5. Hypophosphatemia. Will start the patient on Neutra-Phos to be given via the PEG tube. 6. History of cerebrovascular accident. Aware. 7. Iron-deficiency anemia. Continue with iron replacement. 8. Mucositis. The etiology of the patient's oral ulcerations is unknown. The only new medication that the patient has received in the last week was Diflucan. We will discontinue this medication at this time. Will also consult ID for further recommendations. 9. Hypothyroidism. Continue on Synthroid. 10. Hyperammonemia. Will add lactulose via the PEG tube. 11. The patient is currently a DO NOT RESUSCITATE level 1. The patient is very ill and at high risk for mortality. Will consult palliative care to discuss goals of care with the patient's family. [facility]
[2016-08-07] MEDS: LACTULOSE PEG SCH ×2 (17:37→22:03)
[2016-08-07] MEDS: NS 1,000 ML IV SCH (17:37)
[2016-08-07] MEDS: LOPRESSOR IV SCH (19:19)
--- NOTE | 2016-08-07 19:38 | PROGRESS NOTE ---
DATE: 08/07/2016 SUBJECTIVE: The patient is currently drowsy, resting in bed. She continues to have worsening mucositis in oral cavity cheilitis of unclear etiology. OBJECTIVE: Vital Signs: Temperature of 98.8 degrees, pulse rate of 152, respiratory rate 20, blood pressure of 152/8,6 saturating 97% on 2 L nasal cannula. General appearance: Lying in bed, currently drowsy. HEENT: Pale conjunctivae. No icterus. Mucositis noted in the oral cavity and cheilitis noted at the lips, dry lips and oral mucosa. Neck: Supple. Cardiovascular: Tachycardic. Abdomen: PEG tube in place. PEG tube site appears healthy. No drainage noted at the PEG tube site. Bowel sounds are sluggish but apparently guarding or rebound extremities. Contracted lower extremities. Neurologic: She is currently drowsy, she has altered mental status for the last 1-2 days. LABORATORY DATA: Hemoglobin and hematocrit is 9 and 28.2, white count of 6.5, platelet count of 150,000. Sodium 130, potassium 3.5, chloride 95, bicarbonate 34, anion gap of 9, BUN of 27, creatinine 0.5, glucose of 94, calcium is 11.9. She has hypercalcemia of unclear etiology. Phosphorus 1.4, magnesium 2.1. AST 37, ALT 9, alkaline phosphatase is 114, total bilirubin is 0.77, total protein 5, albumin of 2.9. She is on PEG tube feeds Jevity 1.5. So far she is tolerating it well. She has received 240 mL today and 60 mL of tube irrigant fluid. IMPRESSION AND PLAN: 1. Dysphagia, odynophagia, mucositis, cheilitis. Decreased oral intake, status post PEG tube placement on 08/04/[address] Loya in this regard. We will continue with the dietitian recommendations and slowly advance the tube feeds and check residuals. We will continue with Clinimix until she reaches a goal from the tube feeds. 2. Anemia. We will keep her on iron and multivitamin. 3. Severe esophagitis. We will keep her on PPIs twice daily. Sucralfate; nystatin. 4. Altered mental status. We will defer to primary team to evaluate for any possibility of a cerebrovascular accident or stroke as she has a prior history of cerebrovascular accident. 5. Tachycardia. She needs to have a cardiology evaluation developed for atrial fibrillation and we will defer to primary care team. 6. Hypercalcemia currently worked up by the primary team of unclear etiology. 7. She had a head CT done on 08/04/2016 which showed left mastoid effusion. No evidence of any acute intracranial disease. The above plan was discussed with the patient's nurse and Dr. Gutierrez and also sees Dr. Rothman and Dr. Oro.
[2016-08-07] MEDS: TYLENOL LIQUID PEG PRN (20:04)
[2016-08-07] MEDS: SODIUM CHLORIDE 0.9% INJ SCH (22:03)
[2016-08-08] MEDS: LOPRESSOR IV SCH ×2 (01:35→06:09)
[2016-08-08] MEDS: CLINIMIX E 4.25%-5% SOLUTION 1,000 ML IV SCH ×3 (01:35→13:38)
[2016-08-08] MEDS: TYLENOL LIQUID PEG PRN ×2 (05:30→11:59)
[2016-08-08] MEDS: NS 1,000 ML IV SCH ×3 (06:09→17:30)
[2016-08-08] MEDS: LACTULOSE PEG SCH ×2 (06:09→14:36)
[2016-08-08 06:33] LABS: ALLEN TEST YES; BE 10.6 mmoll (-3.0-3.0); BLOOD TYPE ARTERIAL; DRAW SITE R RADIAL; METHB 1.7 % (0.0-1.5); O2(CT) 12.4 mL/dL (15.0-23.0); PCO2(98.6) 46 mmHg (35-45); PO2(98.6) 53 mmHg (60-100); SAMPLE BLOOD; SAO2 92.8 % (95.0-100.0); THB 9.9 g/dL (11.5-17.4); pH(98.6) 7.49 (7.35-7.45)
[2016-08-08 06:34] LABS: MODALITY CANNULA
[2016-08-08 06:36] LABS: BASO% 1.1 % (0.0-0.8); EOS# 0.02 X1000 (0.0-0.7); EOS% 0.4 % (0.0-10.0); HEMATOCRIT 30.4 % (37.0-47.0); LYMPH# 0.84 X1000 (1.2-3.4); LYMPH% 18.2 % (20.5-51.1); MANUAL DIFF NEEDED? YES; MCH 29.7 PG (27-31); MCHC 32.9 g/dL (33-37); MCV 90.2 FL (81-99); MONO# 1.07 X1000 (0.11-0.59); MONO% 23.2 % (1.7-9.3); NEUT% 57.1 % (42.2-75.2); PLT 171 X1000 (130-400); RBC 3.37 XMIL (4.2-5.4)
[2016-08-08 06:39] LABS: BANDS 2 % (0-1); LYMPHS 36 % (21-51); MONO 16 % (1-9)
[2016-08-08 06:50] LABS: AGAP 12; ALBUMIN 2.6 g/dL (3.5-5.0); BUN 38 mg/dL (8-22); CALCIUM 11.7 mg/dL (8.8-10.2); CHLORIDE 100 mmol/L (98-107); COSMO 295; POTASSIUM 3.2 mmol/L (3.5-5.1); SODIUM 143 mmol/L (136-145); TCO2 31 mmol/L (25-35)
[2016-08-08] MEDS: CARAFATE LIQUID PEG SCH ×3 (06:50→16:01)
[2016-08-08] MEDS ORDERED: POTASSIUM CHLORIDE 20% LIQUID PEG ONE (07:05)
[2016-08-08] MEDS ORDERED: VANCOMYCIN IV PER PHARMACY MISC SCH (07:15)
--- NOTE | 2016-08-08 08:33 | Diag Imaging Result Document ---
PROCEDURE NAME: CHEST-PORTABLE - 08/08/2016 SINGLE FRONTAL RADIOGRAPH OF THE CHEST: COMPARISON: 08/07/2016. FINDINGS: Right PICC line is in stable position. There is a small opacity at the medial right lung base that is approximately stable suggesting atelectasis and/or infiltrate. No new consolidations are identified. Cardiac silhouette is stable. IMPRESSION: Opacity at the medial right lung base suggesting atelectasis and/or infiltrate. Followup is recommended.
[2016-08-08] MEDS: MYCOSTATIN SUSP PEG SCH ×3 (08:35→17:31)
--- NOTE | 2016-08-08 08:52 | Diag Imaging Result Document ---
PROCEDURE NAME: CHEST-PORTABLE - 08/07/2016 SINGLE FRONTAL RADIOGRAPH OF THE CHEST: COMPARISON: 08/03/2016. FINDINGS: The patient's NG tube has been removed. The right PICC line is in stable position with the tip overlying the right atrium. There is increased opacity at the medial right lung base suggesting atelectasis and/or infiltrate. No other new consolidation is identified. Inspiration is suboptimal. Cardiac silhouette is stable. IMPRESSION: Increased opacity at the medial right lung base suggesting atelectasis and/or infiltrate.
[2016-08-08] MEDS ORDERED: CARDIZEM CD PO SCH (09:00)
[2016-08-08] MEDS ORDERED: NORVASC PEG SCH (09:00)
[2016-08-08] MEDS ORDERED: VANCOMYCIN 1,500 MG in NS 250 ML IV ONE (09:00)
[2016-08-08] MEDS: ZOSYN 3.375 GM/NS 50 ML IV SCH ×2 (09:32→13:15)
[2016-08-08] MEDS: MIRALAX PEG SCH (09:41)
[2016-08-08] MEDS: ICAR-C PEG SCH (09:41)
[2016-08-08] MEDS: NEUTRA-PHOS PEG SCH ×3 (09:41→17:28)
[2016-08-08] MEDS: SODIUM CHLORIDE 0.9% INJ SCH (09:42)
[2016-08-08] MEDS: PROTONIX IV SCH (09:42)
[2016-08-08] MEDS: COLACE LIQUID PEG SCH (09:42)
[2016-08-08] MEDS: FOLIC ACID PEG SCH (09:42)
[2016-08-08 10:11] LABS: URINE SOURCE CATH
[2016-08-08] MEDS ORDERED: XIFAXAN PEG SCH (10:15)
[2016-08-08 10:21] LABS: BILIRUBIN URINE NEGATIVE (NEGATIVE); BLOOD URINE LARGE (NEGATIVE); COLOR ORANGE; GLUCOSE URINE NEGATIVE (NEGATIVE); LEUKOCYTES URINE LARGE (NEGATIVE); NITRITE URINE NEGATIVE (NEGATIVE); PH URINE 8.5; PROTEIN URINE 50 mg/dL (NEGATIVE); SP GRAVITY URINE 1.011; TURBIDITY URINE TURBID (CLEAR); UROBILINOGEN URINE NORMAL (NORMAL)
[2016-08-08 10:23] LABS: URINE MICRO REVIEW NEEDED? YES
[2016-08-08 10:25] LABS: UR EPITHELIAL CELLS <10 /HPF (<10); URINE BACTERIA 4+ /HPF; URINE RBC TNTC /HPF (<10); URINE WBC TNTC /HPF (<10)
[2016-08-08 10:41] LABS: URINE CRYSTALS TRIPLE PHOS PRESENT
--- NOTE | 2016-08-08 11:49 | Diag Imaging Result Document ---
PROCEDURE NAME: US SOFT TISSUE HEAD NECK - 08/08/2016 THYROID ULTRASOUND: COMPARISON: None available. FINDINGS: The thyroid isthmus measures 0.2 cm in thickness. The right thyroid lobe measures 4.0 x 1.4 x 1.8 cm. The left thyroid lobe measures 3.1 x 0.9 x 1.5 cm. In the mid right thyroid lobe, there is an ovoid hypoechoic solid nodule with smooth borders exhibiting internal microcalcifications. It measures 0.9 x 0.8 x 0.5 cm. There is a nearby hypoechoic solid nodule that is slightly larger, measuring up to 1.1 x 0.6 x 0.6 cm. It is just inferior to the nodule with the microcalcifications. No other cystic or solid lesions are identified throughout the thyroid. IMPRESSION: A couple small hypoechoic nodules involving the right thyroid lobe. One of these contains microcalcifications. Given the presence of microcalcifications, consider fine-needle aspiration biopsy of the nodule containing the calcifications, as they are associated with an increased risk of malignancy.
[2016-08-08] MEDS: DEPACON 500 MG in NS 50 ML IV SCH (11:59)
--- NOTE | 2016-08-08 12:57 | CONSULTATION ---
DATE OF CONSULTATION: 08/08/2016 HISTORY: Ms. Perez is 66 years old, and she was admitted a few weeks ago with ileus, nausea and vomiting. There is reported past history of stroke causing left-sided weakness , parkinsonism, diabetes mellitus, hypothyroidism, COPD. She is not able to provide a detailed history herself. I have reviewed the available records on [facility] computer system. Financial Investigator at the bedside has known her for several years. About 7 months ago, she seemed suddenly weak all over and more weak on the left , unable to stand and walk without falling. She was admitted to the hospital in [place]. I do not have record of that admission. Financial Investigator reports eventual diagnosis was stroke. Financial Investigator reports there was not recovery of left-sided power, and that she continued to get weaker and weaker. Financial Investigator has seen some shaking movements in the limbs. She cannot tell me whether this was shaking with action or at rest. Financial Investigator reports diagnosis of Parkinson's disease was made in the retirement while patient was getting rehab following the possible stroke. Financial Investigator believes the patient was treated for Parkinson's disease over a period of a few months while in the retirement, but she believes that antiparkinsons medicine was not continued after discharge from the retirement a few months ago. There has been some shaking movement in the hospital this admission. There was apparently an episode of more prominent shaking in recent days that print finishing worker did not witness herself. Her baseline poor responsiveness made it difficult to know if she had altered consciousness then. I do not know about definite previous seizure diagnosis. Her admission medicines include divalproex 500 mg once daily, which may have been prescribed for mood, behavior, or for appetite stimulation rather than for seizure management. Her valproic acid level is 66.4 this admission, and she continues valproic acid 500 mg IV once daily. She has multiple metabolic findings. The lowest sodium recorded was 128 on . Her BUN is up to 38 now after being less than 10 earlier this admission. Creatinine has not been elevated, 0.7 last check. She had some moderately elevated blood sugars over a few days but mostly less than 200. Highest calcium level was 12.3 on 08/05/2016; admission, calcium 8.5. Calcium was 11.[address] of the head done 08/07/2016 was reported unremarkable. Her home medication list does not include anything that generally would be used to treat Parkinson's disease. HOME MEDICINES include gabapentin 600 mg daily, alprazolam 0.5 mg t.i.d. p.r.n. , divalproex 500 mg daily as above, hydrocodone/acetaminophen p.r.n. I do not see anything else on her home medicine list that likely would be associated with encephalopathy, either with intoxication or in withdrawal. We do not have any toxicology reports on this computer system. PHYSICAL EXAMINATION: On exam now, Ms. Perez is supine, head turned to the left, eyes to the left. There is a little bit of resistance initially with passive head turning but eventually muscles relaxed and she had free and easy head movement, left and right. There is full lateral extraocular movement with passive head turning, but when that is stopped, she turned her head to the left and eyes to the left again. Facial motility is diminished bilaterally. Tone is diminished in all limbs. She did not move her arms or legs spontaneously. Plantar response is silent bilaterally. Reflexes are absent at the knees and ankles. She did not speak words to me. She did some grumbling, groaning, grunting but nothing that I could identify as communication. She did not follow any commands for me. IMPRESSION: 1. Features now of mostly global encephalopathy without clear focal findings. I do not see clinical evidence of increased intracranial pressure. Recent unremarkable CT is reassuring. She has several metabolic findings but nothing that generally would account for this degree of encephalopathy. There may be question of toxic component to her encephalopathy. 2. Reported history of previous stroke with left-sided weakness. History from the print finishing worker sounds like onset of weakness with progression rather than more typical stroke-like episode with sudden onset, stable course, followed by improvement. CT did apparently not show evidence of right hemisphere infarction to account for this clinical event of 7 months ago. 3. Reported question of parkinsonism. She is certainly bradykinetic and has paucity of facial expression, but she does not have cogwheeling rigidity, resting tremor, other stigmata of idiopathic Parkinson;s disease. I do not know whether she responded to medicine for Parkinson's disease at the retirement or not. I do not think we need to add medicine for Parkinson's disease again at this point, but we might reconsider depending on her clinical appearance later. 4. History of shaking. Subclinical seizure could explain some of her clinical appearance. I do not have a definite history of more meghann seizure in the past. Although her valproic acid level is low and valproic acid half-life suggests she does not have therapeutic levels throughout the day, level 66.4 was noted. That is low in therapeutic range. I will order EEG and, depending on that report, we might adjust her valproate dose. 5. There is question of primary hyperparathyroidism. She has hypercalcemia and some abnormalities in the thyroid labs. Thanks for asking me to see Ms. Perez. [facility]
[2016-08-08] MEDS: SSD CREAM TOP SCH ×2 (13:37→21:04)
--- NOTE | 2016-08-08 15:01 | PROGRESS NOTE ---
DATE: 08/08/2016 SUBJECTIVE: The patient looks worse today. She is unresponsive and febrile. She appears to be septic. OBJECTIVE: Vital Signs: Temperature 100.5 degrees, blood pressure 113/76, heart rate 117, respirations 30, O2 saturations 100% on 4 L nasal cannula. General: This is a chronically ill- appearing, elderly female, in no acute distress. Head: Normocephalic, atraumatic. Heart: S1, S2. Normal. Tachycardic. Lungs: Coarse breath sounds bilaterally. Abdomen: Positive bowel sounds. Soft, nontender, nondistended. Extremities: No edema. No cyanosis. Neurologic: The patient is unresponsive. LABS: White blood cell count 4.6, hemoglobin 10, hematocrit 30, platelets 171, 000. Sodium 143, potassium 3.2, chloride 100, CO2 31, BUN 38, creatinine 0.7, glucose 118, ammonia 166, albumin 2.6. Urinalysis shows large leukocytes, 4+ bacteria. Blood culture is growing gram positive rods in 1 bottle. ASSESSMENT AND PLAN: 1. Sepsis. Continue on broad-spectrum antibiotic therapy and follow up the final culture and urine culture results. The patient appears to have a urinary tract infection , she may have also aspirated. We will continue with aspiration precautions and hold the patient's tube feeds. 2. Metabolic encephalopathy. The patient's ammonia level is 166, plus the patient is septic. Neurology is following. The patient does have multiple metabolic issues that may explain her altered mental status. We will try to treat the underlying issues and continue to monitor for improvement. 3. Primary hyperparathyroidism. The patient has an elevated intact PTH as well as a persistently high calcium. The patient is not stable enough to undergo a parathyroid nuclear medicine scan plus the patient's family states that they are not interested in surgical intervention for this issue. 4. Thyroid dysfunction. The patient's ultrasound of the thyroid does reveal microcalcifications in the right lobe of the thyroid. Biopsy is recommended. We will continue to follow this closely. 5. Mucositis. Will continue to monitor for improvement. The Diflucan was discontinued yesterday. 6. Hyperammonemia. Continue on rifaximin and lactulose via the PEG tube. 7. Severe protein calorie malnutrition. The patient's tube feeds are on hold at this time. 8. Dysphagia status post PEG tube. Aware. 9. The patient is critically ill with a high risk of mortality. The patient is currently a do not resuscitate, level 1. Palliative care was consulted to discuss goals of care with the patient's family. [facility]
[2016-08-08] MEDS: ELDERTONIC PEG SCH (17:23)
[2016-08-08 17:28] LABS: ALLEN TEST YES; BE 9.3 mmoll (-3.0-3.0); BLOOD TYPE ARTERIAL; DRAW SITE L RADIAL; METHB 1.8 % (0.0-1.5); O2(CT) 12.9 mL/dL (15.0-23.0); PCO2(98.6) 38 mmHg (35-45); PO2(98.6) 89 mmHg (60-100); SAMPLE BLOOD; SAO2 98.8 % (95.0-100.0); THB 9.5 g/dL (11.5-17.4); pH(98.6) 7.54 (7.35-7.45)
[2016-08-08 17:29] LABS: MODALITY NRB
[2016-08-08] MEDS ORDERED: ATIVAN IV PRN (18:51)
[2016-08-08] MEDS ORDERED: TRANSDERM-SCOP TD SCH (19:00)
--- NOTE | 2016-08-08 19:56 | CONSULTATION ---
DATE OF CONSULTATION: 08/08/2016 CONCLUSION: The patient was admitted to the hospital with an altered mental status. She has one of two blood cultures growing a gram-positive migue. The migue does not appear to be a diphtheroid. It looks more like a bacillus. The migue is growing well aerobically and there are no spores seen on the end of the migue, thus it would be unlikely that the organism is going to turner machine to be clostridium. If indeed it is bacillus, then I would consider, since it is only in one of two blood cultures, that it is a contaminant. Patient does have a urinary tract infection with a combination of vancomycin-resistant enterococcus and yeast. Whether this is causing an infection that is responsible for the patient's altered mental status or not is uncertain to me. I suspect that it is probably more of an asymptomatic infection, but I cannot rule out entirely that it is not an active infection that is contributing to the patient's altered mental status. Her CT scan shows a left-sided mastoiditis, but I doubt this is the cause of her altered mental status. RECOMMENDATIONS: I agree with treating the patient with vancomycin and Zosyn pending final culture reports. I have added Micafungin in case the yeast in the patient's urine culture is causing an active infection rather than just an asymptomatic one. DISCUSSION: The patient is unable to provide a history. History was taken from a review of the chart. As mentioned above, the patient was brought in. She had an altered mental status. She has remained unconscious since her admission. Her lab studies from today showed a CBC with a white count of 4610, hemoglobin 10, platelet count of 171,000. Her white count was 4610. Patient's blood gases show a pH of 7.49, a PO2 of 53, and a PCO2 of 46. Her creatinine is 0.7. GFR is greater than 60. Urinalysis shows both bacteria and white cells. In one of two blood cultures, enterococcus and yeast were isolated. Chest x-ray shows a right lower lobe infiltrate, which could be due to pneumonia or atelectasis. The patient's blood culture, as mentioned above, in one of two cultures is growing a gram-positive migue. PAST MEDICAL HISTORY: Positive for: 1. Parkinson's disease. 2. Diabetes. 3. Prior stroke. 4. Diabetic peripheral neuropathy. 5. Gastroesophageal reflux disease. 6. Hypothyroidism. 7. Chronic pain. 8. Chronic obstructive pulmonary disease. 9. Gout. 10. Hyperlipidemia. 11. Hypothyroidism. PAST SURGICAL HISTORY: Positive for: 1. Hiatal hernia repair. 2. Cholecystectomy. 3. Bilateral cataract surgery. 4. PEG tube placed during this admission. SOCIAL HISTORY: Patient does not have a history of alcohol consumption, cigarette smoking, or illicit drug use. She is bedbound and unable to care for herself. ALLERGIES: SHE DOES NOT HAVE ANY KNOWN DRUG ALLERGIES. HOME MEDICATIONS: Her home medications include: Inderal, potassium, meloxicam , lisinopril, Synthroid, hydrocodone, gabapentin, furosemide, Colace, Depakote, diltiazem, clonidine, aspirin, amlodipine, alprazolam, allopurinol, and alendronate. PHYSICAL EXAMINATION: General: The patient is unconscious. She is breathing on her own. I did not see her move her extremities. She did not respond to verbal stimuli. Lungs : Clear to auscultation. Cardiovascular: Regular heart rate. Abdomen: Soft and nontender. PEG tube in place. Extremities: Patient has edema of the legs. I rolled the patient on her side and looked at her back. She did have some very severe decubitus ulcers, but since she has been here, they have gotten excellent care and most all of the sores have healed. There is just a small one right below the sacrum, which is superficial. Thank you for the consult. [facility]
[2016-08-08] MEDS: MORPHINE IV PRN (21:28)
[2016-08-09] MEDS: MORPHINE IV PRN ×3 (04:15→23:17)
[2016-08-09] MEDS ORDERED: VANCOMYCIN 1 GM/NS 250 ML IV SCH (09:00)
[2016-08-09] MEDS: SSD CREAM TOP SCH ×2 (10:00→21:00)
--- NOTE | 2016-08-09 11:20 | EEG REPORT ---
DATE: 08/08/2016 PATIENT LOCATION: Room 381. COMMENT: This is a digitally recorded EEG on a 66-year-old patient with apparent altered awareness, some shaking movement in the limbs, question of seizure. FINDINGS: The record is composed of polymorphic and rhythmic slowing mostly 4-6 Hz across both hemispheres. No sustained posterior dominant rhythm is identified, but there is some 6 Hz rhythm posteriorly. She has slowing into the delta range at 2-3 Hz frontally while awake. There is movement artifact associated with coughing and muscle contraction. Photic stimulation did not significantly alter the record. Drowsing occurred briefly. Stage 2 sleep was not recorded. No definite epileptiform discharge was identified. INTERPRETATION: Abnormal EEG because of generalized slowing. CORRELATION: This is indicative of a diffuse encephalopathy and is nonspecific. The absence of epileptiform discharges on a single EEG does not exclude a clinical diagnosis of seizures, but there is nothing on this record to suggest subclinical seizure as the reason for her poor responsiveness.
--- NOTE | 2016-08-09 11:22 | PROGRESS NOTE ---
DATE: 08/09/2016 Ms. Perez looks about the same. She is not any more responsive than yesterday. Disc Pad Knockout Worker at the bedside reports no significant change. Her EEG showed generalized slowing, but no evidence of epileptiform discharge or other indication of seizure. I do not have any new suggestion today from a neurologic standpoint. Thanks for asking me to see Ms. Perez. [facility]
--- NOTE | 2016-08-09 16:16 | PROGRESS NOTE ---
DATE: 08/09/2016 SUBJECTIVE: The patient is currently unresponsive. She is resting comfortably, however. OBJECTIVE: Vital Signs: Temperature 103.1 degrees, blood pressure 113/62, heart rate 140, respirations 30, O2 saturations 100% on a non-rebreather. General: This is a chronically ill- appearing, unresponsive female lying in bed, in no acute distress. Head: Normocephalic, atraumatic. Heart: S1, S2 normal, tachycardic. Lungs: Coarse breath sounds bilaterally. Abdomen: Positive bowel sounds. Soft, nontender, nondistended. Extremities: Trace pedal edema. Neurologic: The patient is unresponsive. ASSESSMENT AND PLAN: 1. Acute hypoxemic respiratory failure. 2. Sepsis. 3. Metabolic encephalopathy. 4. Thyroid dysfunction. 5. Primary hyperparathyroidism. 6. Hyperammonemia. 7. Mucositis. PLAN: The patient is currently on comfort measures only. All lab draws have been discontinued. The patient is currently on p.r.n. Ativan and morphine for comfort as well as a scopolamine patch. The plan of care was discussed with the patient's family at the bedside.
[2016-08-09] MEDS: TYLENOL LIQUID PEG PRN ×2 (16:19→23:17)
--- NOTE | 2016-08-10 10:57 | PROGRESS NOTE ---
DATE: 08/10/2016 Ms. Perez looks about the same clinically. I discussed very briefly with family at the bedside. I do not have any new thoughts or suggestions from a neurologic standpoint. Thanks for asking me to see Ms. Perez.
[2016-08-10] MEDS: MORPHINE IV PRN ×3 (11:35→21:02)
[2016-08-10] MEDS: SSD CREAM TOP SCH ×2 (11:36→21:45)
[2016-08-10] MEDS: TYLENOL LIQUID PEG PRN ×2 (12:46→18:59)
--- NOTE | 2016-08-10 17:15 | PROGRESS NOTE ---
DATE: 08/10/2016 SUBJECTIVE: The patient is unresponsive. She is febrile at this time. Her family is gathered at the bedside. OBJECTIVE: Vital Signs: Temperature T-max 101.6 degrees, blood pressure 107/56, heart rate 123, respirations 24. O2 saturations 100% on 15 L on the non-rebreather. General: This is a chronically ill-appearing, unresponsive female lying in bed, in no acute distress. Head: Normocephalic atraumatic. Heart: S1, S2 normal. Tachycardic. Lungs: Clear to auscultation bilaterally. No crackles. No rales. Abdomen: Positive bowel sounds. Soft, nontender, nondistended. Extremities: No edema. No cyanosis. Neurologic: The patient is unresponsive. ASSESSMENT: 1. Sepsis secondary to MRSA bacteremia. 2. Urinary tract infection secondary to yeast. 3. Metabolic encephalopathy. 4. Primary hyperparathyroidism. 5. Hyperammonemia. 6. Mucositis. 7. Thyroid dysfunction. PLAN: Will continue with comfort measures to include p.r.n. morphine, p.r.n. Ativan and supplemental oxygen. The patient's family members were updated at the bedside.
[2016-08-11] MEDS: SSD CREAM TOP SCH (09:14)
[2016-08-11] MEDS: MORPHINE IV PRN ×4 (09:19→18:18)
--- NOTE | 2016-08-11 12:23 | PROGRESS NOTE ---
DATE: 08/11/2016 SUBJECTIVE: The patient is currently resting comfortably on a non-rebreather mask. No acute events noted overnight. The patient is receiving p.r.n. morphine for comfort. OBJECTIVE: Vital Signs: Temperature 97.9 degrees, blood pressure 88/48, heart rate 94, respirations 14, O2 saturations 100% on a non-rebreather. General: This is a chronically ill- appearing, elderly female, lying in bed, in no acute distress. Head: Normocephalic atraumatic. Heart: S1, S2. Normal. Tachycardic. Lungs: Clear to auscultation bilaterally. No wheezes, no rales. No rhonchi. Abdomen: Positive bowel sounds. Soft, nontender, nondistended. Extremities: No edema. No cyanosis. ASSESSMENT: 1. Sepsis secondary to MRSA bacteremia. 2. Urinary tract infection secondary to yeast. 3. Metabolic encephalopathy. 4. Primary hyperparathyroidism. 5. Hyperammonemia. 6. Mucositis. 7. Thyroid dysfunction. PLAN: Will continue with comfort measures. The patient's family was updated at the bedside.
[2016-08-11 19:55] VITALS: BP 49/27
[2016-08-11] MEDS: TYLENOL LIQUID PEG PRN (21:03)
--- NOTE | 2016-08-20 05:19 | DISCHARGE SUMMARY ---
ADMISSION DATE: 07/17/2016 DISCHARGE DATE: 08/11/2016 FINAL DISCHARGE DIAGNOSES: 1. Sepsis secondary to methicillin-resistant Staphylococcus aureus bacteremia. 2. Urinary tract infection secondary to yeast. 3. Metabolic encephalopathy. 4. Primary hyperparathyroidism. 5. Thyroid dysfunction. 6. Hyperammonemia. 7. Mucositis. 8. Dysphagia, status post percutaneous endoscopic gastrostomy tube. 9. Severe protein calorie malnutrition. 10. Iron-deficiency anemia. 11. History of cerebrovascular accident. HOSPITAL COURSE: Ms. Perez is a 66-year-old female with a history of stroke who was initially admitted with persistent nausea and vomiting, and hypokalemia. The patient was admitted to the hospitalist service and GI was consulted. The patient underwent an EGD with esophageal dilation on 07/25/2016. This procedure also revealed that the patient had a distal esophageal stricture as well as severe esophagitis with distal esophageal ulcerations. The patient was started on clear liquids. However, she was unable to keep anything down due to the severe ulcerations in her esophagus. The patient was seen by the dietitian and it was decided that the patient would benefit from a PEG tube. The patient underwent PEG tube placement on 08/04/2016. Following the PEG tube placement, the patient's overall medical condition deteriorated. The patient was noted to be hypotensive and tachycardic. The patient was pancultured and started on broad-spectrum antibiotics. Despite aggressive medical therapy, the patient's condition continued to deteriorate. The patient was known to be a DNR level 1 so the family reiterated that they did not want any invasive treatments. The patient was then made comfort measures. On 08/11/2016 at 2110, the patient was pronounced . The patient's family members were present at the time of .
== END 2016-08-11 21:10 | disposition expired | DRG 380 ==
LOC: P.ED 15:30 → P.MEDSURG 18:54 → 4N 07-20 18:44 → 3N 07-22 09:02
PROVIDERS: ATTEND Internal Medicine
PROC: 0D758ZZ Dilation of Esophagus, Via Natural or Artificial Opening Endoscopic (ICD-10-PCS; principal; 2016-07-25 12:32)
PROC: 30233N1 Transfusion of Nonautologous Red Blood Cells into Peripheral Vein, Percutaneous Approach (ICD-10-PCS; 2016-07-28)
PROC: 02HV33Z Insertion of Infusion Device into Superior Vena Cava, Percutaneous Approach (ICD-10-PCS; 2016-07-28)
PROC: 3E0336Z Introduction of Nutritional Substance into Peripheral Vein, Percutaneous Approach (ICD-10-PCS; 2016-08-03)
PROC: 0DH68UZ Insertion of Feeding Device into Stomach, Via Natural or Artificial Opening Endoscopic (ICD-10-PCS; 2016-08-04)
DX: K22.10 Ulcer of esophagus without bleeding (principal); E43 Unspecified severe protein-calorie malnutrition; J96.01 Acute respiratory failure with hypoxia; A41.02 Sepsis due to Methicillin resistant Staphylococcus aureus; G93.41 Metabolic encephalopathy; R64 Cachexia; L89.101 Pressure ulcer of unspecified part of back, stage 1; I11.0 Hypertensive heart disease with heart failure; G20 Parkinson's disease; I50.9 Heart failure, unspecified; I27.2 Other secondary pulmonary hypertension; B37.49 Other urogenital candidiasis; K56.7 Ileus, unspecified; E87.2 Acidosis; E87.1 Hypo-osmolality and hyponatremia; I69.954 Hemiplegia and hemiparesis following unspecified cerebrovascular disease affecting left non-dominant side; N39.0 Urinary tract infection, site not specified; K21.0 Gastro-esophageal reflux disease with esophagitis; K22.2 Esophageal obstruction; E11.42 Type 2 diabetes mellitus with diabetic polyneuropathy; J44.9 Chronic obstructive pulmonary disease, unspecified; E03.9 Hypothyroidism, unspecified; E83.42 Hypomagnesemia; E87.6 Hypokalemia; D50.9 Iron deficiency anemia, unspecified; G89.29 Other chronic pain; Z16.22 Resistance to vancomycin related antibiotics; H70.92 Unspecified mastoiditis, left ear; B95.2 Enterococcus as the cause of diseases classified elsewhere; K44.9 Diaphragmatic hernia without obstruction or gangrene; Z79.899 Other long term (current) drug therapy; Z74.01 Bed confinement status; Z79.82 Long term (current) use of aspirin; E83.51 Hypocalcemia; E86.0 Dehydration; K59.00 Constipation, unspecified; E83.39 Other disorders of phosphorus metabolism; L30.9 Dermatitis, unspecified; R79.1 Abnormal coagulation profile; K29.70 Gastritis, unspecified, without bleeding; Z66 Do not resuscitate; E83.52 Hypercalcemia; K12.30 Oral mucositis (ulcerative), unspecified; R00.0 Tachycardia, unspecified; Z68.25 Body mass index [BMI] 25.0-25.9, adult; Z79.1 Long term (current) use of non-steroidal anti-inflammatories (NSAID); E21.0 Primary hyperparathyroidism; Z86.73 Personal history of transient ischemic attack (TIA), and cerebral infarction without residual deficits
CPT/HCPCS: 36569; 51702; 70450; 71010; 74000; 74020; 74022; 76536; 80048; 80053; 80069; 80165; 81001; 82140; 82310; 82550; 82607; 82728; 82746; 82805; 82948; 83036; 83540; 83550; 83690; 83735; 83880; 83970; 84100; 84132; 84436; 84439; 84442; 84443; 84480; 84481; 84484; 85025; 85027; 85610; 85730; 86376; 86800; 86850; 86900; 86901; 86920; 87040; 87077; 87088; 87186; 93005; 93010; 93306; 94761; 95816; 96361; 96374; C9113; J0610; J1450; J1756; J1940; J2020; J2060; J2175; J2270; J2405; J2543; J2550; J3370; J3430; J3475; J3480; J7030; J7040; J7050; P9016; 92610-GN; 97110-GP; 97530-GP; P9047; S0164